=== PATIENT | male | born 1955 | race Caucasian/White ===

== ENCOUNTER 2024-01-18 07:34 | Observation (INO) ==
--- NOTE | 2023-10-20 14:01 | PAT Medication Instructions ---
Medication Instructions Date of Service October 20, 2023 Home Medications No Tears Eye Drop 1 dose OPB UD PRN ud albuterol sulfate 90 mcg/actuation aerosol inhaler 1 inh inhalation QID PRN sob atorvastatin 10 mg tablet (Lipitor) 10 mg PO PM diltiazem HCl 300 mg capsule,24 hr,extended release 300 mg PO QAM empagliflozin 25 mg tablet (Jardiance) 25 mg PO QAM fluticasone 250 mcg-salmeterol 50 mcg/dose blistr powdr for inhalation (Wixela Inhub) 1 inh inhalation QAM ibuprofen 200 mg tablet 200 mg PO Q6H PRN Pain ipratropium 0.5 mg-albuterol 3 mg (2.5 mg base)/3 mL nebulization soln 3 ml inhalation QID PRN meclizine 12.5 mg tablet 12.5 mg PO UD PRN Dizziness nystatin 100,000 unit/gram topical cream 1 applic topical DAILY PRN omeprazole 20 mg tablet,delayed release 20 mg PO QAM Continue as directed No Tears Eye Drop 1 dose OPB UD PRN ud (if needed) ASK your surgeon for instructions ibuprofen 200 mg tablet 200 mg PO Q6H PRN Pain STOP taking 3 days before surgery empagliflozin 25 mg tablet (Jardiance) 25 mg PO QAM STOP taking 24 hours before surgery nystatin 100,000 unit/gram topical cream 1 applic topical DAILY PRN Take morning of surgery With a small sip of water, OTHERWISE NOTHING TO EAT OR DRINK AFTER MIDNIGHT: albuterol sulfate 90 mcg/actuation aerosol inhaler 1 inh inhalation QID PRN sob (use if needed; please bring with you to hospital day of surgery if possible) diltiazem HCl 300 mg capsule,24 hr,extended release 300 mg PO QAM fluticasone 250 mcg-salmeterol 50 mcg/dose blistr powdr for inhalation (Wixela Inhub) 1 inh inhalation QAM ipratropium 0.5 mg-albuterol 3 mg (2.5 mg base)/3 mL nebulization soln 3 ml inhalation QID PRN (if needed) meclizine 12.5 mg tablet 12.5 mg PO UD PRN Dizziness (if needed) omeprazole 20 mg tablet,delayed release 20 mg PO QAM Take evening before surgery albuterol sulfate 90 mcg/actuation aerosol inhaler 1 inh inhalation QID PRN sob (if needed) atorvastatin 10 mg tablet (Lipitor) 10 mg PO PM ipratropium 0.5 mg-albuterol 3 mg (2.5 mg base)/3 mL nebulization soln 3 ml inhalation QID PRN (if needed) meclizine 12.5 mg tablet 12.5 mg PO UD PRN Dizziness (if needed) Other Notes If you have any questions please call us at [phone] or [phone] or [phone] or [phone]
--- NOTE | 2023-12-29 12:23 | Anesthesiology Consultation ---
Date of Service December 29, 2023 Assessment & Plan (1) Encounter for pre-operative examination: Chart Review Chart Review: Acceptable Risk for Surgery and Patient NOT seen in Pre Admission Testing Consults Requested none History Surgery Operation Date: 11/08/23 07:45 Proposed Procedures p L3-L4 Decompression and Fusion with Spinal Cord Monitoring - Larry Bender DO Operation Date: 01/18/24 07:45 Proposed Procedures p L3-L4 Decompression and Fusion with Spinal Cord Monitoring - Larry Bender DO Height/Weight Height: 5 ft 9 in Weight: 114.305 kg Allergies Allergy/AdvReac Type Severity Reaction Status Date / Time Iodinated Contrast Media Allergy Unknown hives Unverified 12/29/23 09:54 latex Allergy Unknown rash Unverified 12/29/23 09:54 chlorhexidine Allergy Rash Verified 12/29/23 09:54 Medications Home Medications Medication Instructions Recorded Confirmed Last Taken No Tears Eye Drop 1 dose OPB UD PRN ud 10/15/23 12/29/23 Unknown albuterol sulfate 90 mcg/actuation 1 inh inhalation QID PRN sob 10/15/23 12/29/23 Unknown aerosol inhaler atorvastatin 10 mg tablet (Lipitor) 10 mg PO PM 10/15/23 12/29/23 Unknown diltiazem HCl 300 mg capsule,24 300 mg PO QAM 10/15/23 12/29/23 Unknown hr,extended release empagliflozin 25 mg tablet 25 mg PO QAM 10/15/23 12/29/23 Unknown (Jardiance) fluticasone 250 mcg-salmeterol 50 1 inh inhalation QAM 10/15/23 12/29/23 Unknown mcg/dose blistr powdr for inhalation (Wixela Inhub) ibuprofen 200 mg tablet 200 mg PO Q6H PRN Pain 10/15/23 12/29/23 Unknown ipratropium 0.5 mg-albuterol 3 mg 3 ml inhalation QID PRN sob 10/15/23 12/29/23 Unknown (2.5 mg base)/3 mL nebulization soln lubiprostone 8 mcg capsule 8 mcg PO HS 10/15/23 12/29/23 Unknown meclizine 12.5 mg tablet 12.5 mg PO UD PRN Dizziness 10/15/23 12/29/23 Unknown nystatin 100,000 unit/gram topical 1 applic topical DAILY PRN ud 10/15/23 12/29/23 Unknown cream omeprazole 20 mg tablet,delayed 20 mg PO QAM 10/15/23 12/29/23 Unknown release linagliptin 5 mg tablet (Tradjenta) 5 mg PO QAM 12/29/23 12/29/23 Unknown Past Medical History Medical History (Updated 12/29/23 @ 12:23 by Yassine Salcido MD) Obesity Encounter for pre-operative examination Chronic cough History of COVID-19 2020 - hospitalized at [facility] "3-4 weeks." reports chronic cough since diagnosis History of colon polyps Osteoarthritis DDD (degenerative disc disease), lumbar IBS (irritable bowel syndrome) DM type 2 (diabetes mellitus, type 2) History of prostate cancer dx'd 2020. Treated surgically. Hearing deficit wears hearing aids HLD (hyperlipidemia) History of paroxysmal supraventricular tachycardia follows with Dr. Rowell Sleep apnea CPAP Asthma uses PRN inh 2xwk on avg COPD (chronic obstructive pulmonary disease) Past Family History Family History Other No family history of adverse response to anesthesia Past Surgical History Surgical History History of rib fracture Rt - pt reports hardware in place History of cataract surgery History of surgery on lower extremity RLE x 13 procedures r/t trauma History of umbilical hernia repair History of right shoulder replacement History of left shoulder replacement History of esophagogastroduodenoscopy (EGD) History of colonoscopy History of prostate surgery History of prostate biopsy History of cardiac catheterization most recent early - no stents. Social History Smoking Status: Former smoker Do You Dip or Chew Tobacco: No Smoking End Date: 2016 Hx Alcohol Use: No Hx Substance Use: No substance use type: does not use Testing Laboratory Results Laboratory Tests 12/23/23 09:22 WBC 6.40 Hgb 14.9 Hct 43.9 Plt Count 166 PT 10.5 INR 1.0 APTT 26 Sodium 137 Potassium 4.1 Chloride 105 Carbon Dioxide 25 BUN 20 Creatinine 0.84 Glucose 186 H Electrocardiogram Date: 12/23/23 DICTATED BY: Julio Ribeiro MD Test Reason : Blood Pressure : / mmHG Vent. Rate : 067 BPM Atrial Rate : 067 BPM P-R Int : 132 ms QRS Dur : 106 ms QT Int : 414 ms P-R-T Axes : 065 -29 009 degrees QTc Int : 437 ms Normal sinus rhythm with sinus arrhythmia Normal ECG No previous ECGs available Confirmed by Julio Ribeiro ([id number]) on 12/25/2023 5:58:05 AM Echocardiogram Date: 10/20/19 EF 55%. LV is normal in size. Impaired relaxation. Mild LVH. LA mildly dilated. Mild AR
[2024-01-18] MEDS: LR 60ML/HR IV SCH (08:43)
[2024-01-18] MEDS: LR 15ML/HR IV SCH (08:43)
[2024-01-18] MEDS: CeleBREX 200 MG CAP PO SCH (08:44)
[2024-01-18] MEDS: ACETAMINOPHEN 500 MG TAB PO SCH (08:44)
[2024-01-18] MEDS: GABAPENTIN 300 MG CAP PO SCH (08:44)
--- NOTE | 2024-01-18 09:12 | History & Physical Bridge Note ---
Date of Service January 18, 2024 History & Physical Bridge Note I have examined the patient, reviewed the History & Physical and in the interval since the performance of the History & Physical I have noted the following changes of clinical significance: no changes noted
--- NOTE | 2024-01-18 09:13 | History & Physical Report ---
Date of Service January 18, 2024 Assessment & Plan (1) Lumbar disc herniation with radiculopathy: Plan: L3-L4 laminectomy possible fusion History of Present Illness Chief Complaint: Back and leg pain Primary Care Provider: Faina Albert DO This is a 69-year-old male who presents with chronic persistent back and leg pain and failing since course of nonoperative care is here for surgical invention. Allergies Allergy/AdvReac Type Severity Reaction Status Date / Time Iodinated Contrast Media Allergy Unknown hives Verified 01/18/24 08:18 latex Allergy Unknown rash Verified 01/18/24 08:18 chlorhexidine Allergy Rash Verified 01/18/24 08:18 Home Medications Medication Instructions Recorded Confirmed Type No Tears Eye Drop 1 dose OPB UD PRN ud 10/15/23 01/18/24 History albuterol sulfate 90 mcg/actuation 1 inh inhalation QID PRN sob 10/15/23 01/18/24 History aerosol inhaler atorvastatin 10 mg tablet (Lipitor) 10 mg PO PM 10/15/23 01/18/24 History diltiazem HCl 300 mg capsule,24 300 mg PO QAM 10/15/23 01/18/24 History hr,extended release empagliflozin 25 mg tablet 25 mg PO QAM 10/15/23 01/18/24 History (Jardiance) fluticasone 250 mcg-salmeterol 50 1 inh inhalation QAM 10/15/23 01/18/24 History mcg/dose blistr powdr for inhalation (Wixela Inhub) ibuprofen 200 mg tablet 200 mg PO Q6H PRN Pain 10/15/23 01/18/24 History ipratropium 0.5 mg-albuterol 3 mg 3 ml inhalation QID PRN sob 10/15/23 01/18/24 History (2.5 mg base)/3 mL nebulization soln lubiprostone 8 mcg capsule 8 mcg PO HS 10/15/23 01/18/24 History meclizine 12.5 mg tablet 12.5 mg PO UD PRN Dizziness 10/15/23 01/18/24 History nystatin 100,000 unit/gram topical 1 applic topical DAILY PRN ud 10/15/23 01/18/24 History cream omeprazole 20 mg tablet,delayed 20 mg PO QAM 03/01/24 06/04/24 History release linagliptin 5 mg tablet (Tradjenta) 5 mg PO QAM 12/29/23 01/18/24 History Past Med/Surg History Problem List (Updated 01/18/24 @ 09:12 by Larry Bender DO) Lumbar disc herniation with radiculopathy Recurrent infective cystitis Balanitis Lower urinary tract symptoms (LUTS) Prostate cancer Medical History (Updated 01/18/24 @ 09:12 by Larry Bender DO) Obesity Encounter for pre-operative examination Chronic cough History of COVID-19 2020 - hospitalized at [facility] x "3-4 weeks." reports chronic cough since diagnosis History of colon polyps Osteoarthritis DDD (degenerative disc disease), lumbar IBS (irritable bowel syndrome) DM type 2 (diabetes mellitus, type 2) History of prostate cancer dx'd 2020. Treated surgically. Hearing deficit wears hearing aids HLD (hyperlipidemia) History of paroxysmal supraventricular tachycardia follows with Dr. Rowell Sleep apnea CPAP Asthma uses PRN inh 2xwk on avg COPD (chronic obstructive pulmonary disease) Surgical History History of rib fracture Rt - pt reports hardware in place History of cataract surgery History of surgery on lower extremity RLE x 13 procedures r/t trauma History of umbilical hernia repair History of right shoulder replacement History of left shoulder replacement History of esophagogastroduodenoscopy (EGD) History of colonoscopy History of prostate surgery History of prostate biopsy History of cardiac catheterization most recent early - no stents. Family History Other No family history of adverse response to anesthesia Social History Smoking Status: Former smoker Smoking End Date: 2016; Second Hand Exposure: No; Do You Dip or Chew Tobacco: No; Tobacco Cessation Education Requested by Patient: No Hx Alcohol Use: No Hx Substance Use: No Preferred Language: Faroese Communication Ability: Effective Strategic Partnership Specialist Required: No Beliefs That Will Affect Care: None Current Living Situation: Alone Feels Safe at Home: Yes Safety Concerns: Feels Safe At This Time Assistive Devices: CPAP, Glasses, Hearing Aid - Bilateral and Nebulizer Physical Exam Physical Exam: Patient is alert and oriented heart regular in rhythm Lungs clear Results & Data Results & Data Vital Signs (Past 12 Hours) Vital Signs Temp Resp O2 Del Method 01/18/24 08:26 36.8 C 20 Room Air
[2024-01-18] MEDS ORDERED: MIDAZOLAM HCL 1 MG/ML 2ML VIAL ONE (09:39)
[2024-01-18] MEDS ORDERED: ROCURONIUM BROMIDE 10 MG/ML 5 ML VIAL IV ONE ×4 (09:39→10:50)
[2024-01-18] MEDS ORDERED: LIDOCAINE 2% 2 ML VIAL/AMP(20MG/ML) INFIL ONE (09:39)
[2024-01-18] MEDS ORDERED: fentaNYL citrate PF 100 MCG/2 ML VIAL ONE (09:39)
[2024-01-18] MEDS ORDERED: PROPOFOL IV EMULSION 10 MG/ML 20 ML VIAL IV ONE (09:39)
[2024-01-18] MEDS: ceFAZolin 2000MG 2,000 MG/15 ML SYR IV SCH ×2 (10:05→17:24)
[2024-01-18] MEDS ORDERED: KETAMINE HCL 10MG/ML SYR ONE (10:42)
[2024-01-18] MEDS ORDERED: SUGAMMADEX SODIUM 200 MG/2 ML VIAL IV ONE (10:50)
[2024-01-18] MEDS: ceFAZolin 330 MG/ML 1 GM VIAL ONE (11:02)
[2024-01-18] MEDS: BUPIVACAINE/EPINEPHRINE 0.25% 1:200,000 30 ML VIAL ONE (11:02)
[2024-01-18] MEDS: FLOSEAL HEMOSTATIC MATRIX 10ML TOP ONE (11:31)
--- NOTE | 2024-01-18 11:36 | Operative Report ---
Post Operative Report Pre & Post Diagnosis Operation Date: 01/18/24 09:35 Pre-Op Diagnosis: #1 lumbar spinal stenosis with neurogenic claudication #2 lumbar disc herniation with radiculopathy #3 obesity Post-Op Diagnosis: Same I identified the patient and participated in the time-out.: Yes Procedure Operation Date: 01/18/24 09:35 Actual Procedures #1 lumbar decompression with bilateral medial facetectomies and foraminotomies L3-L4. #2 posterior spinal fusion L3-L4. #3 placement of posterior instrumentation L3-L4 per #4 interbody fusion L3-L4. #5 placement of Spira 15 x 26 mm at L3-L4. #6 placement locally harvested morselized autograft and posterior gutters. #7 placement infuse collagen sponge combined with Koros bone graft in the posterior gutters and Morpheus bone graft interbody space. Surgeon Larry Bender, DO Pediatric Physical Therapist Lucero Cintron Estimated Blood Loss 450 Findings See Below The patient is 5 foot 9 weighing over 114 kg with a BMI in excess of 37. The patient's body habitus created significant technical difficulty with positioning exposure and the procedure itself and at least 50% increased operative time. Specimens None Indications This is a 69-year-old male who presents above-mentioned diagnosis after failing since course of nonoperative care is here for surgical invention. Description of Procedure Patient was met with identified informed consent obtained. Patient was then taken to the operative suite underwent ablation placed in a prone position on the Kt table top of the [place] frame. All bony promises well-padded eyes inspected to ensure no external precipice spinal. This point lumbar spine was prepped and draped in normal sterile fashion. Sharp dissection with the assistance of Bovie cautery was then formed down to and exposing the lamina interlaminar space at L3-L4. A midline decompression was then performed including bilateral medial facetectomies. Then performed foraminotomies of the left to excise the foraminal stenosis and disc herniation. The discrimination extended throughout the foramen to the extraforaminal region. I did end up compromising the facet in order to adequately decompress this region. Subsequently created iatrogenic instability. In light of the patient's body habitus and obesity I therefore move forward with a fusion at this level to adequately stabilize him and prevent further neural compression. Dissection was carried out to the transverse processes at L3-L4 bilaterally. Pedicle screws then placed at L3-L4 bilaterally with assistance of fluoroscopy process evette placed. By way of transforaminal approach on the left a complete discectomy of L3-L4 was performed endplates guided to subcortical bleeding bone and a 15 x 26 mm spiral cage filled with Morpheus bone graft apposition. The rods then compressed locked in final position bilaterally. The transverse processes of L3-L4 burred to subcortical bleeding bone. Infuse collagen sponge, with Koros and local autograft placed in the posterior gutters. 15 round YAJAIRA drain inserted. The incision was then closed with 1 Vicryl in the fascia 2-0 Vicryl subcutaneously and 4 Monocryl for final closure. Steri-Strips sterile dressings placed. Patient waken taken to PACU stable condition. Please note Lucero Cintron was present at the entire procedure and all the patient positioning complex portions of the surgery and final skin closure. Spinal cord monitoring was utilized and no changes were noted throughout the procedure. I attest to the content of the Intraoperative Record and any orders documented therein. Any exceptions are noted below.
--- NOTE | 2024-01-18 11:58 | Fluoroscopy Report ---
FL lumbar spine 2-3V CLINICAL HISTORY: L3-L4 LAMI COMPARISON STUDY: None. FLUOROSCOPY TIME: 16 seconds FLUOROSCOPY IMAGES: Ka,r: 16.3 mGy FINDINGS: Posterior decompression and fusion at L3-L4 with pedicle screws and rods. The hardware appe ars intact. A disc spacer is in place. IMPRESSION: Fluoroscopic assistance as above. ACT 112: Negative or not required by law. Electronically signed by: Bryant Chau M.D. 01/18/2024 11:57 AM
[2024-01-18] MEDS ORDERED: ATROPINE SULFATE 0.1 MG/ML 10ML SYR IV PRN (12:08)
[2024-01-18] MEDS ORDERED: DROPERIDOL 5 MG/2 ML VIAL IV PRN (12:08)
[2024-01-18] MEDS ORDERED: ePHEDrine sulfate 50 MG/ML AMP IV PRN (12:08)
[2024-01-18] MEDS: HYDROmorphone INJ 1 MG/ML SYRINGE IV PRN (12:10)
[2024-01-18] MEDS: HYDROmorphone INJ 1 MG/ML SYRINGE ONE (12:31)
[2024-01-18] MEDS ORDERED: DO NOT ADMINISTER FLU VACCINE PRN (13:19)
[2024-01-18] MEDS ORDERED: ALBUTEROL HFA 8 GM INHALER INH PRN (13:19)
[2024-01-18] MEDS ORDERED: PROMETHAZINE HCL 12.5 MG in SODIUM CHLORIDE 0.9% 50 ML IV PRN (13:19)
[2024-01-18] MEDS ORDERED: PHARMACY GLYCEMIC MGMT CONSULT PRN (13:19)
[2024-01-18] MEDS ORDERED: NALOXONE HCL 0.4 MG/1 ML VIAL/CARP IV PRN (13:19)
[2024-01-18] MEDS ORDERED: ACETAMINOPHEN 1,000 MG/100 ML VIAL IV PRN (13:19)
[2024-01-18] MEDS ORDERED: ALBUT/IPRATROP 3MG/0.5MG NEB 3 ML VIAL INH PRN (13:19)
[2024-01-18] MEDS ORDERED: FAMOTIDINE 20 MG TAB PO PRN (13:19)
[2024-01-18] MEDS ORDERED: ALUMINUM/MAGNESIUM SUSP 30 ML UDC PO PRN (13:19)
[2024-01-18] MEDS ORDERED: DO NOT ADMINISTER PNEUMOCOCCAL VACCINE PRN (13:19)
[2024-01-18] MEDS ORDERED: SOD PHOSPHATE/SOD BIPHOSPHATE ENEMA 132 ML BTL PR PRN (13:19)
[2024-01-18] MEDS ORDERED: diphenhydrAMINE Capsule 25 MG CAP PO PRN (13:19)
[2024-01-18] MEDS ORDERED: hydrOXYzine HCl 25 MG TAB PO PRN (13:19)
[2024-01-18] MEDS ORDERED: METOCLOPRAMIDE HCL INJ 5 MG/ML 2 ML VIAL IV PRN (13:19)
[2024-01-18] MEDS ORDERED: HYDROmorphone INJ 0.5 MG/0.5 ML SYR IV PRN (13:19)
[2024-01-18] MEDS ORDERED: bisacodyL 10 MG SUPP PR PRN (13:19)
[2024-01-18] MEDS ORDERED: ONDANSETRON 4 MG OD TAB PO PRN (13:19)
[2024-01-18] MEDS ORDERED: HYDROmorphone INJ 1 MG/ML SYRINGE IV PRN (13:19)
[2024-01-18] MEDS ORDERED: LORazepam 0.5 MG in SYRINGE 0.25 ML IV PRN (13:19)
[2024-01-18] MEDS ORDERED: LORazepam 0.5 MG TAB PO PRN (13:19)
[2024-01-18] MEDS ORDERED: ONDANSETRON INJ 2 MG/ML 2 ML VIAL IV PRN (13:19)
[2024-01-18] MEDS ORDERED: ACETAMINOPHEN 500 MG TAB PO PRN (13:19)
--- NOTE | 2024-01-18 13:20 | Anesthesiology Progress Note ---
Date of Service January 18, 2024 Anesthesia Post Procedure Vital Signs Vital Signs: Temp Pulse Resp BP Pulse Ox O2 Del Method O2 Flow Rate 01/18/24 13:05 37.0 C 68 14 109/60 96 Nasal Cannula 2 01/18/24 12:55 71 14 112/57 L 94 Nasal Cannula 2 01/18/24 12:45 74 16 123/79 93 Nasal Cannula 3 01/18/24 12:35 71 16 126/60 93 Oxymask 7 01/18/24 12:25 77 12 137/81 90 Oxymask 13 01/18/24 12:15 78 13 134/78 91 Oxymask 13 01/18/24 12:05 81 12 163/90 H 91 Oxymask 13 01/18/24 11:55 78 12 162/84 H 90 Oxymask 13 01/18/24 11:49 36.6 C 82 19 177/86 H 91 Oxymask 13 01/18/24 08:26 36.8 C 20 Room Air Pain Intensity Back: Pain Intensity: 7 Transfer of Care Handoff Completed per policy Notes Mental Status: alert / awake / arousable Patient Amnestic to Procedure: Yes Nausea / Vomiting: adequately controlled Pain: adequately controlled Airway Patency, RR, SpO2: stable & adequate BP & HR: stable & adequate Hydration State: stable & adequate Anesthetic Complications: no major complications apparent
[2024-01-18] MEDS ORDERED: ARTIFICIAL TEARS OPB PRN (13:27)
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
[2024-01-18] MEDS: LACTATED RINGER'S 1,000 ML IV SCH (14:21)
--- NOTE | 2024-01-18 14:34 | Pharmacy Report ---
Pharmacy Glycemic Short Note 2 - Date of Service January 18, 2024 - Glycemic Short BSG Results (Last 24 hours): 01/18/24 01/18/24 08:18 11:53 POC Glucose 140 H 125 H OUTPATIENT ANTIDIABETIC REGIMEN: * Empagliflozin 25 mg, Jardiance 5 mg PO qAM * A1c pending with Am labs ASSESSMENT: * Patient admitted POD #0, dex 6 mg IV scheduled to start tomorrow * BSGs 140-125 mg/dL * Will begin between weight based stress of 1 and 2 basal/bolus * Monitor for need to tighten with start of steroids PLAN FOR INPATIENT GLYCEMIC CONTROL: * Hold outpatient oral diabetes medications * Basal insulin * Lantus 15 units x1 * Bolus insulin * NovoLog per scale ACHS or Q6hrs while NPO * Goal Range: Low 110 mg/dL - High 140 mg/dL * Correction Factor: 30 mg/dL/unit * Nutritional / Prandial insulin per carb ratio of 1 unit per 10 grams CHO consumed
[2024-01-18] MEDS: INSULIN ASPART PER UNIT CHARGE SC SCH (14:49)
[2024-01-18] MEDS: LANTUS PER UNIT CHARGE SC ONE (14:49)
[2024-01-18] MEDS: traMADol HCL 50 MG TABLET PO PRN (16:49)
[2024-01-18] MEDS ORDERED: LEVALBUTEROL 1.25 MG/3 ML NEB NEB SCH (20:45)
[2024-01-18] MEDS: SODIUM CHLOR 7% 4 ML NEB NEB SCH (21:06)
[2024-01-18] MEDS: IPRATROPIUM BROMIDE NEB SOLN 0.02% 0.5MG/2.5ML VIAL NEB ONE (21:06)
[2024-01-18] MEDS: LEVALBUTEROL 1.25 MG/3 ML NEB NEB ONE (21:06)
[2024-01-18] MEDS: DOXYCYCLINE HYCLATE 100 MG CAP PO SCH (22:16)
[2024-01-18] MEDS: ATORVASTATIN 10 MG TAB PO SCH (22:16)
[2024-01-18] MEDS: guaiFENesin 600 MG TABCR PO SCH (22:16)
[2024-01-18] MEDS: oxyCODONE HCL IR 5 MG TAB (IMMEDIATE RELEASE) PO PRN (22:17)
[2024-01-18 23:55] LABS: Adenovirus PCR Not Detected (NotDetected); Bordetella parapertussis PCR Not Detected (NotDetected); Bordetella pertussis PCR Not Detected (NotDetected); Chlamydia pneumoniae PCR Not Detected (NotDetected); Coronavirus 229E PCR Not Detected (NotDetected); Coronavirus CoV-2 (COVID19)PCR Not Detected (NotDetected); Coronavirus HKU1 PCR Not Detected (NotDetected); Coronavirus NL63 PCR Not Detected (NotDetected); Coronavirus OC43PCR Not Detected (NotDetected); Human Metapneumovirus PCR Not Detected (NotDetected); Influenza A PCR Not Detected (NotDetected); Influenza B PCR Not Detected (NotDetected); Mycoplasma pneumoniae PCR Not Detected (NotDetected); Parainfluenza Virus 1 PCR Not Detected (NotDetected); Parainfluenza Virus 2 PCR Not Detected (NotDetected); Parainfluenza Virus 3 PCR Not Detected (NotDetected); Parainfluenza Virus 4 PCR Not Detected (NotDetected); Respiratory Syncytial VirusPCR Not Detected (NotDetected); Rhinovirus/Enterovirus PCR Not Detected (NotDetected)
[2024-01-19] MEDS: NYSTATIN OINT 15 GM TUBE EXT SCH (00:10)
[2024-01-19] MEDS: LUBIPROSTONE 8 MCG CAP PO SCH (00:10)
[2024-01-19] MEDS: DOCUSATE SODIUM/SENNA 50/8.6MG TAB PO SCH (00:10)
[2024-01-19] MEDS: LEVALBUTEROL 1.25 MG/3 ML NEB NEB SCH (01:00)
[2024-01-19] MEDS: IPRATROPIUM BROMIDE NEB SOLN 0.02% 0.5MG/2.5ML VIAL NEB SCH (01:00)
[2024-01-19] MEDS: POLYETHYLENE (MIRALAX) 17 GM PACK PO SCH (05:57)
[2024-01-19 07:08] LABS: Basophils # (auto) 0.04 K/uL (0.00-0.20); Basophils % (auto) 0.4 %; Hematocrit (blood only) 44.7 % (42.0-52.0); Hemoglobin 14.6 g/dl (14.0-18.0); Immature Granulocytes # (auto) 0.12 K/uL (0.01-0.20); Immature Granulocytes % (auto) 1.2 %; Lymphocytes # (auto) 1.03 K/uL (1.20-3.40); Lymphocytes % (auto) 10.6 %; Mean Corpuscular Hgb Conc 32.7 g/dL (32.0-36.0); Mean Corpuscular Volume 85.6 fL (80.0-100.0); Mean Platelet Volume 11.3 fL (9.4-12.4); Monocytes # (auto) 0.67 K/uL (0.11-0.59); Monocytes % (auto) 6.9 %; Neutrophils # (auto) 7.85 K/uL (1.40-6.50); Neutrophils % (auto) 80.9 %; Platelet Count 195 K/uL (130-400); RDW Coefficient of Variation 14.8 % (11.5-14.5); RDW Standard Deviation 46.4 fL (36.4-46.3); Red Blood Count 5.22 M/uL (4.70-6.10); White Blood Count 9.71 K/ul (4.8-10.8)
[2024-01-19 07:29] LABS: BUN Creatinine Ratio 18.9 (10-20); Calcium 9.3 mg/dl (8.6-10.3); Creatinine Clr Calc Pharmacy 99.4 ml/min; Est GFR (African American) 102.1 ml/min; Est GFR (Non-African American) 88.1 ml/min; Potassium 4.4 mmol/L (3.5-5.1)
--- NOTE | 2024-01-19 07:47 | XRay Report ---
XR chest 1V portable HISTORY: cough, COPD,r/o pneumonia COMPARISON: Chest 12/23/2023. FINDINGS: No pneumothorax. There are trace bilateral pleural effusions. The heart remains mildly enla rged. There is mild central pulmonary vascular congestion without overt edema. A few bibasilar linear densities favor subsegmental atelectasis. Otherwise, no focal lung consolidations to suggest a pneum onia. Postoperative changes within the right ribs again noted. There are bilateral total shoulder art hroplasties. IMPRESSION: Cardiomegaly with mild congestive change and trace bilateral pleural effusions. ACT 112: Negative or not required by law. Electronically signed by: Bryant Chau M.D. 01/19/2024 7:46 AM
[2024-01-19] MEDS: dexAMETHasone 6 MG in SYRINGE 0 ML IV SCH (08:11)
[2024-01-19] MEDS: ADVANCED PROBIOTIC 625 MG CAPSULE PO SCH (08:11)
[2024-01-19] MEDS: PANTOprazole 40 MG TAB PO SCH (08:12)
[2024-01-19] MEDS: FLUTICASONE/VILANTEROL 200/25MCG 14 PUFFS/INHALER INH SCH (08:13)
[2024-01-19] MEDS: LANTUS PER UNIT CHARGE SC SCH ×2 (08:23→21:24)
[2024-01-19] MEDS: cefTRIAXone SODIUM 2,000 MG/50 ML BAG IV SCH (08:30)
[2024-01-19 08:44] LABS: Estimated Average Glucose 154 mg/dl
[2024-01-19] MEDS ORDERED: EMPAGLIFLOZIN 25 MG TAB PO SCH (09:00)
--- NOTE | 2024-01-19 09:20 | Orthopedic Progress Note ---
Date of Service January 19, 2024 Assessment & Plan (1) Lumbar disc herniation with radiculopathy: Plan: This time continue physical therapy monitor his YAJAIRA operatively discharged home the next few days. Admission and Anticipated Discharge Date Admission Date: January 18, 2024 Subjective Back pain controlled leg pain improved Physical Exam Physical Exam: Patient is sitting up at the bedside. Is good strength testing. Appears comfortable. Results & Data Vital Signs (Past 12 Hours) Vital Signs Temp Pulse Pulse Resp BP Pulse Ox O2 Del Method 01/19/24 08:15 36.5 C 70 18 126/64 95 Room Air 01/19/24 07:54 36.5 C 80 18 112/68 97 Room Air 01/19/24 07:38 Nasal Cannula 01/19/24 07:31 98 H 18 88 L Room Air 01/19/24 03:34 36.5 C 71 17 125/63 94 CPAP 01/19/24 01:00 78 18 93 CPAP 01/18/24 22:53 36.7 C 79 17 128/67 92 Nasal Cannula, CPAP 01/18/24 22:10 Nasal Cannula O2 Flow Rate 01/19/24 08:15 01/19/24 07:54 01/19/24 07:38 2 01/19/24 07:31 01/19/24 03:34 2 01/19/24 01:00 2 01/18/24 22:53 2 01/18/24 22:10 2 Queries Orthopedic Spine Obesity: Yes
[2024-01-19] MEDS: dilTIAZem HCL 300 MG CAPCR PO SCH (09:25)
[2024-01-19 10:16] LABS: Appearance Urine Clear (Clear); Bilirubin Urine Negative (Negative); Blood Urine Negative (Negative); Color Urine Yellow; Glucose Urine UA 2+ (Negative); Ketones Urine Negative (Negative); Leukocyte Esterase Urine Negative (Negative); Nitrite Urine Negative (Negative); Protein Urine Negative (Negative); Specific Gravity Urine 1.018 (1.000-1.030); Urobilinogen Urine Negative (Negative); pH Urine 5.5 (4.5-7.5)
--- NOTE | 2024-01-19 14:22 | Hospitalist Progress Note ---
Date of Service January 19, 2024 Assessment & Plan (1) Lumbar disc herniation with radiculopathy: Plan: - POD # 1 Lumbar decompression fusion of L2-L3 by Dr. Bender - Pain management, bowel regimen and DVT ppx per the primary team - PT/OT consults, pt is planning on outpatient therapy, lives at home with son as neighbor - Follow am CBC to monitor for acute blood loss, last hgb 14.9 on 12/23/23 - Hgb post op day 1 is normal (2) History of prostate cancer: Plan: currently surveillance, PSA elevated to 9.3 follows [facility], Dr. Kinney for medical oncology will need to f/u with urology as outpt (3) DM type 2 (diabetes mellitus, type 2): Plan: -Accu-Cheks ACHS -Jardiance and linagliptin scheduled with a.m. meds per primary team -Glycemic pharmacy has been consulted -a1c 7.0 appreciate glycemic recs (4) HLD (hyperlipidemia): Plan: -Continue statin therapy, chronic, stable (5) Sleep apnea: Plan: -Continue CPAP at bedtime (6) HTN (hypertension): Plan: -BP stable, continue diltiazem (7) COPD (chronic obstructive pulmonary disease): (8) COPD exacerbation: (9) Asthma: Plan: - Nebs, wixela -starting on IV rocephin and doxy POD # 0 due to concern for COPD exac --Procal is negative, also afebrile, no leukocytosis, no evidence of PNA, WILL Discontinue IV Rocephin; continue oral doxy due to copd exac concern - hypertonic saline - continue cpap, he has been weaned off oxygen, lungs clear today -CXR with congestive change, no consolidation -obtain bmp, cbc and BNP in a.m -he is not overtly overloaded on exam so will hold on diuresis at this time -pt with multiple cups of liquid at bedside if hypoxia returns would repeat CXR and pt likely to benefit from small dose IV lasix (10) Obesity: Plan: -BMI 37.3, encouraged weight loss and diet status post surgical procedure DVT ppx: teds, scds Lines: PIV x 1, YAJAIRA drain FEN/GI: Allow diabetic/heart healthy diet CODE: Full code Dispo: From home, likely to remain in the hospital x 1-2 days Thank you for involving us in the care of Mr. Boss. If you have any questions or concerns please do not hesitate to call. At this time medicine will follow along. A total of 42 minutes were spent with greater than 50% of that time face to face with the patient, personally reviewing all current laboratories, imaging studies, past medication reconciliation, outpatient chart review, and discussion with specialists to collaborate care for the patient with attending. Please see attending documentation for corrections and/or additions. Admission and Anticipated Discharge Date Admission Date: January 18, 2024 Supervising Physician Co-Signing Physician Notes Patient not seen by me Discussed with Advanced Practitioner Subjective Patient was seen and examined in 301. Follow up lumbar surgery. He was ambulating the halls before my visit. He denies f/c/s, chest pain, sob, n/v/d, abd pain. He feels his urine smells like, "sewage." Review of Systems Review of Systems: All systems reviewed & are unremarkable except as noted in HPI & below Physical Exam Physical Exam: Gen: WD/WN, tall, M, NAD, A&O x3 HEENT: Normocephalic, atraumatic, conjunctivae moist, sclerae anicteric, mucous membranes moist. Lung: Clear to Auscultation bilaterally, no wheezes/rales/rhonchi Heart: Regular rate, regular rhythm, no murmurs, rubs, or gallops Abdomen: Soft, NT, ND +BS x 4 Extremities: No edema, teds in place, lumbar dressing CDI with serosang dressing Skin: Warm, no rash, negative turgor. Results & Data Results & Data Vital Signs (Past 12 Hours) Vital Signs Temp Pulse Pulse Resp BP Pulse Ox O2 Del Method 01/19/24 13:13 97 H 18 90 Room Air 01/19/24 13:09 36.6 C 76 18 126/84 95 Room Air 01/19/24 08:15 36.5 C 70 18 126/64 95 Room Air 01/19/24 07:54 36.5 C 80 18 112/68 97 Room Air 01/19/24 07:38 Nasal Cannula 01/19/24 07:31 98 H 18 88 L Room Air 01/19/24 03:34 36.5 C 71 17 125/63 94 CPAP O2 Flow Rate 01/19/24 13:13 06/05/24 13:09 01/19/24 08:15 01/19/24 07:54 01/19/24 07:38 2 01/19/24 07:31 01/19/24 03:34 2 Diagnostic Findings urinalysis viewed and interpreted by myself and negative for infection. Medications Administered Current Inpatient Medications Acetaminophen (Acetaminophen 500 Mg Tab) 1,000 mg PO Q8H PRN PRN Reason: MILD Pain Scale 1,2,3 & Pre PT Stop: 02/17/24 13:18 Al Hydrox/Mg Hydrox/Simethicone (Aluminum/Magnesium Susp 30 Ml Udc) 30 ml PO Q6H PRN PRN Reason: Dyspepsia Stop: 02/17/24 13:18 Albuterol (Albuterol Hfa 8 Gm Inhaler) 1 puffs INH QID PRN PRN Reason: sob Stop: 02/17/24 13:18 Albuterol (Albut/Ipratrop 3mg/0.5mg Neb 3 Ml Vial) 3 ml INH QID PRN; Protocol PRN Reason: sob Stop: 02/17/24 13:18 Artificial Tears (Artificial Tears) 1 drops OPB QID PRN PRN Reason: DRYNESS Stop: 02/17/24 13:26 Atorvastatin Calcium (Atorvastatin 10 Mg Tab) 10 mg PO PM CHELSEY Stop: 02/17/24 20:59 Last Admin: 01/18/24 22:16 Dose: 10 mg Bisacodyl (Bisacodyl 10 Mg Supp) 10 mg [place] DAILY PRN PRN Reason: Constipation Stop: 02/17/24 13:18 Diltiazem HCl (Diltiazem Hcl 300 Mg Capcr) 300 mg PO QAM CHELSEY Stop: 02/18/24 08:59 Last Admin: 01/19/24 09:25 Dose: 300 mg Diphenhydramine HCl (Diphenhydramine Capsule 25 Mg Cap) 25 mg PO Q6H PRN PRN Reason: Allergic Rhinitis/Insomnia Stop: 02/17/24 13:18 Doxycycline Hyclate (Doxycycline Hyclate 100 Mg Cap) 100 mg PO BID CHELSEY Stop: 01/25/24 20:59 Last Admin: 01/19/24 08:12 Dose: 100 mg Famotidine (Famotidine 20 Mg Tab) 20 mg PO Q12H PRN PRN Reason: Dyspepsia Stop: 02/17/24 13:18 Fluticasone/Vilanterol (Fluticasone/Vilanterol 200/25mcg 14 Puffs/Inhaler) 1 puffs INH QAM [facility] Stop: 02/18/24 08:59 Last Admin: 01/19/24 08:13 Dose: 1 puffs Guaifenesin (Guaifenesin 600 Mg Tabcr) 1,200 mg PO Q12 CHELSEY Stop: 02/17/24 20:59 Last Admin: 01/19/24 08:12 Dose: 1,200 mg Hydromorphone HCl (Hydromorphone Inj 0.5 Mg/0.5 Ml Syr) 0.5 mg IV Q3H PRN PRN Reason: MODERATE Pain (Scale 4,5,6) & Pre PT Stop: 02/01/24 13:18 Hydromorphone HCl (Hydromorphone Inj 1 Mg/Ml Syringe) 1 mg IV Q3H PRN PRN Reason: SEVERE Pain (Scale 7,8,9,10) Stop: 02/01/24 13:18 Hydroxyzine HCl (Hydroxyzine Hcl 25 Mg Tab) 25 mg PO Q8H PRN PRN Reason: Anxiety Stop: 02/17/24 13:18 Promethazine HCl 12.5 mg/ (Sodium Chloride) 50.5 mls @ 202 mls/hr IV Q6H PRN PRN Reason: Nausea &/or Vomiting Stop: 02/17/24 13:18 Lorazepam 0.5 mg/ Syringe 0.5 mls @ 2 mls/min IV Q8H PRN; Protocol PRN Reason: Sedation/Anxiety Stop: 02/17/24 13:18 Dexamethasone 6 mg/ Syringe 1.5 mls @ 1 mls/min IV DAILY CHELSEY Stop: 01/21/24 09:02 Last Admin: 01/19/24 08:11 Dose: 1 mls/min Ceftriaxone Sodium (Rocephin) 2,000 mg in 50 mls @ 100 mls/hr IV Q24H [facility] Stop: 01/26/24 08:59 Last Infusion: 01/19/24 09:02 Dose: Infused Influenza Virus Vaccine Quadrival (Do Not Administer Flu Vaccine) 1 each N/A PRN PRN PRN Reason: Notification Stop: 02/17/24 13:18 Insulin Aspart (Insulin Aspart Per Unit Charge) 0 units SC ACHS [facility] Stop: 02/17/24 14:29 Last Admin: 01/19/24 12:14 Dose: 9 units Insulin Glargine (Lantus Per Unit Charge) 0 units SC HS [facility]; Protocol Stop: 02/18/24 20:59 Insulin Glargine (Lantus Per Unit Charge) 20 units SC QAM [facility]; Protocol Stop: 02/19/24 08:59 Ipratropium [place] (Ipratropium [place] Neb Soln 0.02% 0.5mg/2.5ml Vial) 0.5 mg NEB Q6R [facility] Stop: 02/18/24 00:59 Last Admin: 01/19/24 13:12 Dose: 0.5 mg Lactobacillus Acidophilus (Advanced Probiotic 625 Mg Capsule) 1,250 mg PO DAILY [facility] Stop: 02/18/24 08:59 Last Admin: 01/19/24 08:11 Dose: 1,250 mg Levalbuterol HCl (Levalbuterol 1.25 Mg/3 Ml Neb) 1.25 mg NEB Q6R [facility] Stop: 02/18/24 00:59 Last Admin: 01/19/24 13:13 Dose: 1.25 mg Lorazepam (Lorazepam 0.5 Mg Tab) 0.5 mg PO Q8H PRN PRN Reason: Sedation/Anxiety Stop: 02/17/24 13:18 Lubiprostone (Lubiprostone 8 Mcg Cap) 8 mcg PO [facility] Stop: 02/17/24 20:59 Last Admin: 01/19/24 00:10 Dose: 8 mcg Magnesium Hydroxide (Magnesium Hydroxide Susp 30 Ml Udc) 30 ml PO Q24H PRN PRN Reason: Constipation Stop: 02/17/24 13:18 Meclizine HCl (Meclizine 12.5 Mg Tab) 12.5 mg PO UD PRN PRN Reason: Dizziness Stop: 02/17/24 13:18 Metoclopramide HCl (Metoclopramide Hcl Inj 5 Mg/Ml 2 Ml Vial) 10 mg IV Q6H PRN PRN Reason: Nausea &/or Vomiting Stop: 02/17/24 13:18 Miscellaneous Information (Pharmacy Glycemic Mgmt Consult) 1 each N/A UD PRN PRN Reason: Consult Stop: 02/17/24 13:18 Naloxone HCl (Naloxone Hcl 0.4 Mg/1 Ml Vial/Carp) 0.1 mg IV Q5M PRN PRN Reason: Oversedation/Resp depression Stop: 02/17/24 13:18 Nystatin (Nystatin Oint 15 Gm Tube) 1 appln EXT BID CHELSEY Stop: 02/17/24 20:59 Last Admin: 01/19/24 08:12 Dose: 1 appln Ondansetron HCl (Ondansetron Inj 2 Mg/Ml 2 Ml Vial) 4 mg IV Q6H PRN PRN Reason: Nausea &/or Vomiting Stop: 02/17/24 13:18 Ondansetron HCl (Ondansetron 4 Mg Od Tab) 4 mg PO Q6H PRN PRN Reason: Nausea Stop: 02/17/24 13:18 Oxycodone HCl (Oxycodone Hcl Ir 5 Mg Tab (Immediate Release)) 5 - 10 mg PO Q4H PRN PRN Reason: Pain & Pre PT Stop: 02/01/24 13:18 Last Admin: 01/19/24 06:00 Dose: 10 mg Pantoprazole Sodium (Pantoprazole 40 Mg Tab) 40 mg PO QAM [facility] Stop: 02/18/24 08:59 Last Admin: 01/19/24 08:12 Dose: 40 mg Pneumococcal Polyvalent Vaccine (Do Not Administer Pneumococcal Vaccine) 1 each N/A PRN PRN PRN Reason: Notification Stop: 02/17/24 13:18 Polyethylene Glycol (Polyethylene (Miralax) 17 Gm Pack) 17 gm PO Q6 [facility] Stop: 02/18/24 05:59 Last Admin: 01/19/24 12:14 Dose: 17 gm Senna/Docusate Sodium (Docusate Sodium/Senna 50/8.6mg Tab) 2 tab PO HS [facility] Stop: 02/17/24 20:59 Last Admin: 01/19/24 00:10 Dose: 2 tab Sodium Biphosphate/Sodium Phosphate (Sod Phosphate/Sod Biphosphate Enema 132 Ml Btl) 132 ml [place] ONE PRN PRN Reason: Constipation Stop: 02/17/24 13:18 Sodium Chloride (Sodium Chlor 7% 4 Ml Neb) 4 ml NEB BIDR CHEL[facility] Stop: 02/17/24 20:34 Last Admin: 01/19/24 07:31 Dose: 4 ml Tramadol HCl (Tramadol Hcl 50 Mg Tablet) 50 - 100 mg PO Q4H PRN PRN Reason: Moderate-Severe pain & Pre PT Stop: 02/17/24 13:18 Last Admin: 01/19/24 12:21 Dose: 100 mg
--- NOTE | 2024-01-19 14:31 | Pharmacy Report ---
Pharmacy Glycemic Short Note 2 - Date of Service January 19, 2024 - Glycemic Short BSG Results (Last 24 hours): 01/18/24 01/18/24 01/18/24 14:33 16:49 20:36 Glucose POC Glucose 165 H 169 H 211 H 01/19/24 01/19/24 01/19/24 06:49 07:44 11:34 Glucose 242 H POC Glucose 205 H 181 H OUTPATIENT ANTIDIABETIC REGIMEN: * Empagliflozin 25 mg, Jardiance 5 mg PO qAM * A1c pending with Am labs ASSESSMENT: 01/18 * BSGs [phone] mg/dL yesterday * Fasting this morning 205 mg/dL- will increase lantus dose today * Tightened novolog parameters as patient started 6 mg IV dexamethasone daily 01/17 * Patient admitted POD #0, dex 6 mg IV scheduled to start tomorrow * BSGs 140-125 mg/dL * Will begin between weight based stress of 1 and 2 basal/bolus * Monitor for need to tighten with start of steroids PLAN FOR INPATIENT GLYCEMIC CONTROL: * Hold outpatient oral diabetes medications * Basal insulin * Lantus 20 units xqAM, scale for PM 0-15 units * Bolus insulin * NovoLog per scale ACHS or Q6hrs while NPO * Goal Range: Low 110 mg/dL - High 140 mg/dL * Correction Factor: 20 mg/dL/unit * Nutritional / Prandial insulin per carb ratio of 1 unit per 6 grams CHO consumed
[2024-01-19] MEDS: MAGNESIUM HYDROXIDE SUSP 30 ML UDC PO PRN (15:59)
[2024-01-19] MEDS ORDERED: LANTUS PER UNIT CHARGE SC SCH (21:00)
[2024-01-20 06:15] LABS: Hematocrit (blood only) 42.7 % (42.0-52.0); Mean Corpuscular Hemoglobin 28.2 pg (25.0-34.0); Mean Corpuscular Hgb Conc 32.8 g/dL (32.0-36.0); Mean Corpuscular Volume 85.9 fL (80.0-100.0); Mean Platelet Volume 11.9 fL (9.4-12.4); Platelet Count 182 K/uL (130-400); RDW Standard Deviation 46.8 fL (36.4-46.3); Red Blood Count 4.97 M/uL (4.70-6.10); White Blood Count 9.29 K/ul (4.8-10.8)
[2024-01-20 06:23] LABS: BUN Creatinine Ratio 21.6 (10-20); Calcium 9.3 mg/dl (8.6-10.3); Creatinine Clr Calc Pharmacy 120.9 ml/min; Est GFR (African American) 110.6 ml/min; Est GFR (Non-African American) 95.4 ml/min; Potassium 4.7 mmol/L (3.5-5.1)
--- NOTE | 2024-01-20 08:18 | Discharge Summary ---
Date of Service January 20, 2024 Admission HPI Per Admitting Provider This is a 69-year-old male who presents with chronic persistent back and leg pain and failing since course of nonoperative care is here for surgical invention. Principal Diagnosis Lumbar spinal stenosis with radiculopathy Discharge Data Allergies Allergy/AdvReac Type Severity Reaction Status Date / Time Iodinated Contrast Media Allergy Unknown hives Verified 01/18/24 08:18 latex Allergy Unknown rash Verified 01/18/24 08:18 chlorhexidine Allergy Rash Verified 01/18/24 08:18 Consultations 01/18/24 13:19 Consult Hospitalist Routine Procedures Performed Operation Date: 01/18/24 09:35 Actual Procedures p L3-L4 Laminectomy Fusion with Spinal Cord Monitoring (Not Applicable) - Larry Bender DO Ordered Studies 01/18/24 09:35 FL lumbar spine 2-3V Routine Hospital Course (1) Lumbar disc herniation with radiculopathy: Patient underwent lumbar decompression fusion tolerated as well as negative orthopedic for postoperative. Postoperatively progressed appropriately. Marked improvement in his back pain. YAJAIRA drain decreasing well. Strength intact. Subsequent discharge home. Discharge orders instructions from the chart for further review. Total Time Total Time Spent Total Time Spent (In Minutes): 20 minutes Discharge Plan Discharge Items Patient Disposition: Home - Self-Care Reason For Visit: Lumbar Disc Herniation with Radiculopathy, Lumbar Discharge Diagnosis: Lumbar disc herniation with radiculopathy Activity: As commented below Non-emergency contact: Primary Care Provider Call non-emergency contact if: you have any medication questions Follow-up/Referrals: Faina Albert DO [Primary Care Provider] - Diet: Regular Addtl Attending Provider Instructions: ACTIVITY RECOMMENDATIONS: SELF CARE INSTRUCTIONS AFTER THORACIC/LUMBAR FUSIONS 1. You may walk to your tolerance. It is good exercise for your legs and back. Expect some back and intermittent leg aches and pains. 2. You may perform "counter-top" level activities (make a sandwich, syl with a project, etc.). 3. No bending or lifting of more than 10 pounds or back twisting of any nature (roll like a log when turning in bed). 4. You may ride in a car for 20-30 minutes at a time. No driving until after your first visit with your doctor. 5. Frequent changes of position and restricting sitting to 30 minutes at a time will help limit the amount of back spasms and stiffness you may experience. 6. You may discontinue the use of ambulatory aids (cane, crutches, etc.) once your strength and confidence allow. 7. 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 Do not take a tub bath, sit in a hot tub or go into a swimming pool until after your first recheck in the office. SPECIAL CARE INSTRUCTIONS: VERY IMPORTANT TO READ AND REVIEW A. Your surgical incision has been closed with a cosmetic suture under the skin that will dissolve in about 6 weeks. In 14 days, you can use a pair of clean scissors and cut the suture that is left outside of the skin at the ends of your incision. 1. The small skin tapes can be removed 7 days after surgery if they have not fallen off by that point. 2. You may keep the wound open to air as much as possible to promote healing after post-op day number 5 unless told otherwise by your doctor. 3. If you think the wound looks like it is becoming infected (redness or worsening drainage) and/or you are experiencing fever, chill or worsening back pain and muscle spasms, contact the office so that we may evaluate you as soon as possible. B. Complications are uncommon, but please contact us if you have any signs or symptoms of: 1. wound infection (fever higher than 102.5 degrees F, redness, separation of wound, drainage, or increasing pain from the incision) 2. blood clots in legs (pain, swelling, redness and warmth in legs) 3. urinary tract infection (fever higher than 102.5 degrees F, burning upon urination or increased frequency of urination) 4. nerve problems (inability to walk on your toes or heels, numbness, loss of bowel or bladder control) 5. any other symptoms that concern you C. Please call the office at if you have any concerns or questions about your operation or recovery. D. No smoking! Smoking drastically decreases the chance of a solid fusion. E. Do not take any anti-inflammatory medications (Indocin, Advil, Motrin, Aspirin, Naprosyn, etc.) as these may inhibit the chance of a solid fusion. Tylenol is okay to take for pain. MANAGING PAIN AFTER SPINAL SURGERY 1. Narcotic medication is intended for short-term use and will be provided for surgical pain. Surgical pain usually lasts for a period of 4-6 weeks. Narcotic medication includes Percocet, Vicodin, Darvocet, Tylenol #3 or Lortab. 2. Longer-term pain is more appropriately treated with non-narcotic medication such as Tylenol ES. 3. Muscle spasm is not appropriately treated with narcotics. Muscle relaxers such as Soma, Flexeril or Skelaxin can be used along with Tylenol ES. 4. Remember that we all live with some "aches and pains". This is not unusual or uncommon after an injury or as we get older. a. Back pain is expected and may include muscle spasms for 4 to 6 weeks after surgery. The pain should gradually improve. If the pain worsens for no apparent reason, please contact the office. b. Intermittent leg pain may also be experienced and should not be concerned about unless it worsens for no apparent reason. If so, please contact the office. 5. We will provide appropriate medication within the normal guidelines of their prescribed use. We will also be very cautious and aware of potential abuse and extended duration of patients' medication needs. a. Pain medications are for your comfort and to assist with sleep and rest so that the tissue can heal. They are not provided in order to return to normal activity and should not be used through the day. To do so or worsening pain at night can result from ongoing tissue damage and development of tolerance to the prescribed medicine. 6. Please allow 2-3 days to process refills. Prescriptions will not be mailed but must be picked up at the office. FOLLOW UP VISIT: Keep your scheduled follow-up appointment. Any questions, please call the office at . Pending Studies at Discharge: No Stand-Alone Forms: My [facility], Smoking Cessation Medications and DC Order Prescriptions: New tramadol 50 mg tablet 50 mg PO Q6H PRN (Reason: pain, moderate) Qty: 30 0RF oxycodone 5 mg tablet 5 mg PO Q6H PRN (Reason: pain) Qty: 30 0RF Continued fluticasone propion-salmeterol [Wixela Inhub] 250-50 mcg/dose Blister With Device 1 inh INHALATION QAM ipratropium-albuterol 0.5 mg-3 mg(2.5 mg base)/3 mL Solution For Nebulization 3 ml INHALATION QID PRN (Reason: sob) atorvastatin [Lipitor] 10 mg Tablet 10 mg PO PM meclizine 12.5 mg Tablet 12.5 mg PO UD PRN (Reason: Dizziness) diltiazem HCl 300 mg Capsule,Extended Release 24 Hr 300 mg PO QAM nystatin 100,000 unit/gram Cream 1 applic TOPICAL DAILY PRN (Reason: ud) ibuprofen 200 mg Tablet 200 mg PO Q6H PRN (Reason: Pain) albuterol sulfate 90 mcg/actuation Hfa Aerosol Inhaler 1 inh INHALATION QID PRN (Reason: sob) omeprazole 20 mg Tablet,Delayed Release (Dr/Ec) 20 mg PO QAM lubiprostone 8 mcg Capsule 8 mcg PO HS Jardiance 25 mg Tablet 25 mg PO QAM No Tears Eye Drop 1 dose OPB UD PRN (Reason: ud) Tradjenta 5 mg Tablet 5 mg PO QAM Discharge Orders: Discharge Order (Routine); Ordered 01/20/24 Ordered By: Larry Bender Admission Data Admit Date/Time: 01/18/24 10:47 Attending Provider: Larry Bender Admit Provider: Larry Bender Primary Care Provider: Faina Albert Other Providers: Ruthann Reese
[2024-01-20] MEDS ORDERED: LANTUS PER UNIT CHARGE SC SCH (09:00)
[2024-01-20] MEDS: LANTUS PER UNIT CHARGE SC SCH (09:04)
[2024-01-20] MEDS: MECLIZINE 12.5 MG TAB PO PRN (10:23)
--- NOTE | 2024-01-20 10:56 | Hospitalist Progress Note ---
Date of Service January 20, 2024 Assessment & Plan (1) Lumbar disc herniation with radiculopathy: Plan: - POD # 1 Lumbar decompression fusion of L2-L3 by Dr. Bender - Pain management, bowel regimen and DVT ppx per the primary team - PT/OT consults, pt is planning on outpatient therapy, lives at home with son as neighbor - Follow am CBC to monitor for acute blood loss, last hgb 14.9 on 12/23/23 - Hgb post op day 1 is normal (2) History of prostate cancer: Plan: - currently surveillance, PSA elevated to 9.4 up from 8.4 in Jul 2023 follows [facility], Dr. Kinney for medical oncology will need to f/u with urology as outpt-Discussed with the patient at bedside, he plans to call Dr. Horan before he leaves the hospital today. -follow-up within 2 to 4 weeks (3) DM type 2 (diabetes mellitus, type 2): Plan: -Accu-Cheks ACHS -Jardiance and linagliptin scheduled with a.m. meds per primary team -Glycemic pharmacy has been consulted -a1c 7.0 appreciate glycemic recs (4) HLD (hyperlipidemia): Plan: -Continue statin therapy, chronic, stable (5) Sleep apnea: Plan: -Continue CPAP at bedtime (6) HTN (hypertension): Plan: -BP stable, continue diltiazem (7) COPD (chronic obstructive pulmonary disease): (8) COPD exacerbation: (9) Asthma: Plan: - Nebs, wixela - starting on IV rocephin and doxy POD # 0 due to concern for COPD exac --Procal is negative, also afebrile, no leukocytosis, no evidence of PNA, - Discontinue IV Rocephin; continue oral doxy due to copd exac - should complete 7 day course, scheduled to finish on 01/25/24. Rx sent. - hypertonic saline - continue cpap HS, he has been weaned off oxygen, lungs clear today -CXR with congestive change, no consolidation -obtain bmp, cbc and BNP in a.m -he is not overtly overloaded on exam so will hold on diuresis at this time -pt with multiple cups of liquid at bedside - no return of hypoxia (10) Obesity: Plan: -BMI 37.3, encouraged weight loss and diet status post surgical procedure DVT ppx: teds, scds Lines: PIV x 1, YAJAIRA drain FEN/GI: Allow diabetic/heart healthy diet CODE: Full code Dispo: From home, likely to remain in the hospital x 1-2 days Thank you for involving us in the care of Mr. Boss. If you have any questions or concerns please do not hesitate to call. At this time medicine will follow along. A total of 43 minutes were spent with greater than 50% of that time face to face with the patient, personally reviewing all current laboratories, imaging studies, past medication reconciliation, outpatient chart review, and discussion with specialists to collaborate care for the patient with attending. Please see attending documentation for corrections and/or additions. Admission and Anticipated Discharge Date Admission Date: January 18, 2024 Supervising Physician Co-Signing Physician Notes Patient seen and examined Patient reviewed with Advanced Practitioner Agree with Advanced Practitioner's evaluation, findings and plans and take full responsibility Subjective Patient is seen and examined at bedside, states he is doing well. Anticipating home discharge later this afternoon. He reports minimal pain in his lower back, still has some numbness and tingling but states that this is improved compared to previously. YAJAIRA drain in place, draining small amounts of serosanguineous fluids. He had a bowel movement last evening, urinating without difficulty. Patient denies any urinary complaints. We discussed elevated PSA of 9.4, up from 8.4 from July 2023. He was encouraged to call his urologist, Dr. Horan and plans to do so before he leaves the hospital. Review of Systems Review of Systems: Constitutional: No fever, sweats or chills Eyes: No diplopia, no worsening or blurred vision ENT: normal hearing, no trouble swallowing Respiratory: No cough, sputum, dyspnea at rest or on exertion Cardiovascular: No chest pain, tightness or palpitations Abdomen: No pain, nausea, vomiting, diarrhea or constipation Back: Minimal pain, no tightness, YAJAIRA drain in place Musculoskeletal: No joint pain, calf pain, swelling Neurologic: No weakness, + chronic numbness/tingling, or balance problems Psychiatric: No anxiety or depression Skin: No rash or itch Physical Exam Physical Exam: General: awake, alert, no apparent distress, obese white male Head: Normocephalic, atraumatic ENT: PERRL, EOMI, no pharyngeal exudate, mucous membranes moist Chest: Clear to auscultation, on room air, very faint rales, improved with cough Cardiac: Regular rate and rhythm, no murmur, no JVD, normal peripheral pulses, good capillary refill Abdominal: NABS x 4 quadrants, soft, nondistended, nontender to palpation, no rebound or guarding Back: Dressing C/D/I, incision site appears to be healing well, no surrounding erythema, no purulent drainage, YAJAIRA drain in place draining serosanguineous fluids Extremities: Normal inspection, no peripheral edema or erythema, calfs nontender to palpation Psych: Normal mood and affect Neuro: AAO x 3, strength intact bilaterally and rated 5/5, no motor deficits, speech is clear, no peripheral sensory deficits Results & Data Results & Data Vital Signs (Past 12 Hours) Vital Signs Temp Pulse Resp BP Pulse Ox O2 Del Method 01/20/24 07:21 77 18 92 Room Air 01/20/24 07:09 36.8 C 78 16 131/81 93 Room Air Laboratory Results 01/18/24 21:25 Gram Stain - Final Sputum, Expectorated Sputum Culture - Preliminary Moderate normal marlon present, final report to follow. 01/20/24 01/20/24 01/20/24 07:29 06:33 05:18 WBC 9.29 RBC 4.97 Hgb 14.0 Hct 42.7 MCV 85.9 MCH 28.2 MCHC 32.8 RDW Std Deviation 46.8 H RDW Coeff of Jacek 15.0 H Plt Count 182 MPV 11.9 Sodium 133 L Potassium 4.7 Chloride 99 Carbon Dioxide 26 Anion Gap 8 BUN 16 Creatinine 0.74 Est Cr Clr Drug Dosing 120.9 Est GFR ( Amer) 110.6 Est GFR (Non-Af Amer) 95.4 BUN/Creatinine Ratio 21.6 H Glucose 199 H POC Glucose 153 H 161 H Calcium 9.3 B-Natriuretic Peptide 24 Prostate Specific Ag Procalcitonin 01/19/24 01/19/24 01/19/24 20:45 16:38 11:53 WBC RBC Hgb Hct MCV MCH MCHC RDW Std Deviation RDW Coeff of Jacek Plt Count MPV Sodium Potassium Chloride Carbon Dioxide Anion Gap BUN Creatinine Est Cr Clr Drug Dosing Est GFR ( Amer) Est GFR (Non-Af Amer) BUN/Creatinine Ratio Glucose POC Glucose 205 H 195 H Calcium B-Natriuretic Peptide Prostate Specific Ag 9.398 H Procalcitonin < 0.02 01/19/24 11:34 WBC RBC Hgb Hct MCV MCH MCHC RDW Std Deviation RDW Coeff of Jacek Plt Count MPV Sodium Potassium Chloride Carbon Dioxide Anion Gap BUN Creatinine Est Cr Clr Drug Dosing Est GFR ( Amer) Est GFR (Non-Af Amer) BUN/Creatinine Ratio Glucose POC Glucose 181 H Calcium B-Natriuretic Peptide Prostate Specific Ag Procalcitonin
== END 2024-01-20 17:35 | disposition home health service (06) | DRG 454 ==
LOC: ASU 07:34 → 3E 07:34 → INTOOBSV 11:40 → OBSVTOIN 11:40

== ENCOUNTER 2024-11-30 05:48 | Observation (INO) ==
--- NOTE | 2024-11-22 11:00 | Anesthesiology Consultation ---
Date of Service November 22, 2024 Assessment & Plan (1) Encounter for pre-operative examination: - medical clearance 11/08/24: "...low to intermediate cardiac risk..." - Per product representative on 11/20/24: No known infectious disease contacts, current infectious disease symptoms in past 10 days or COVID positive test result in the past 30 days. Chart Review Chart Review: Acceptable Risk for Surgery and Patient NOT seen in Pre Admission Testing History Surgery Operation Date: 11/30/24 07:30 Proposed Procedures p Robotic assisted Laparoscopic Radical Retropubic Prostatectomy Possible Open, Possible Pelvic Lymph Node Dissection - Curtis Horan, DO Height/Weight Height: 5 ft 8 in Weight: 120.202 kg Allergies Allergy/AdvReac Type Severity Reaction Status Date / Time chlorhexidine Allergy Mild Rash Verified 11/20/24 12:42 latex Allergy Mild rash Verified 11/20/24 12:42 Iodinated Contrast Media Allergy Unknown hives Verified 11/20/24 12:42 semaglutide [From Ozempic] AdvReac Mild Bloated Verified 11/20/24 12:42 Januvia Allergy Mild Vomiting Uncoded 11/20/24 12:42 Metformin Allergy Mild Vomiting Uncoded 11/20/24 12:42 Medications Home Medications Medication Instructions Recorded Confirmed Last Taken albuterol sulfate 90 mcg/actuation 1 inh inhalation QID PRN sob 10/15/23 11/20/24 01/17/24 18:00 aerosol inhaler diltiazem HCl 300 mg capsule,24 300 mg PO QAM 10/15/23 11/20/24 01/18/24 07:40 hr,extended release empagliflozin 25 mg tablet 25 mg PO QAM 10/15/23 11/20/24 01/08/24 (Jardiance) ipratropium 0.5 mg-albuterol 3 mg 3 ml inhalation QID PRN sob 10/15/23 11/20/24 01/17/24 12:00 (2.5 mg base)/3 mL nebulization soln lubiprostone 8 mcg capsule 8 mcg PO HS PRN Constipation 10/15/23 11/20/24 01/17/24 19:00 nystatin 100,000 unit/gram topical 1 applic topical DAILY PRN ud 10/15/23 11/20/24 01/11/24 cream omeprazole 20 mg tablet,delayed 20 mg PO QAM 10/15/23 11/20/24 01/17/24 05:00 release linagliptin 5 mg tablet (Tradjenta) 5 mg PO QAM 12/29/23 11/20/24 01/17/24 05:00 artificial tears(hypromellose) 0.3 1 drp ophthalmic (eye) TID PRN ud 09/21/24 11/20/24 Unknown % eye drops clobetasol 0.05 % topical cream 1 applic topical DAILY PRN . 09/21/24 11/20/24 Unknown meclizine 12.5 mg tablet 12.5 mg PO DAILY PRN Dizziness 09/21/24 11/20/24 Unknown atorvastatin 20 mg tablet 20 mg PO PM 11/20/24 11/20/24 Unknown fluticasone fur. 100 mcg-umeclid 1 inh inhalation QAM 11/20/24 11/20/24 Unknown 62.5 mcg-vilant 25 mcg inhalat.powder (Trelegy Ellipta) Past Medical History Medical History (Updated 11/22/24 @ 10:55 by Pinky Call PA-C) Asthma using more frequently d/t pollen Benign neoplasm of colon Chronic cough COPD (chronic obstructive pulmonary disease) DDD (degenerative disc disease), lumbar DM type 2 (diabetes mellitus, type 2) GERD (gastroesophageal reflux disease) Hearing deficit wears hearing aids History of cellulitis treated for "3 weeks ago" in right leg History of colon polyps History of paroxysmal supraventricular tachycardia follows with Dr. Sorin FREITAS (hyperlipidemia) HTN (hypertension) IBS (irritable bowel syndrome) Obesity Osteoarthritis Prostate cancer first treated 2020 (surgery) Pulmonary nodule Sleep apnea CPAP TIA (transient ischemic attack) >no problems Past Family History Family History Mother , in her 60s Diabetes Myocardial infarction Breast cancer Hypertension Father , at 78yo Myocardial infarction Stroke Hypertension Breast cancer Brother Heart disease Stroke Brother Prostate cancer Sister Diabetes Myocardial infarction Sister Medical history unknown Sister Medical history unknown Sister Cancer Pt uncertain of type Daughter Overdose Son No problems noted. Daughter Medical history unknown Other No family history of adverse response to anesthesia Past Surgical History Surgical History History of cardiac catheterization most recent early - no stents. History of carpal tunnel surgery Bilateral History of cataract surgery right/left History of colonoscopy History of esophagogastroduodenoscopy (EGD) History of left shoulder replacement History of lumbar laminectomy 01/2024>MN with Yulia History of prostate biopsy History of prostate surgery TURP History of rib fracture Rt - pt reports hardware in place 2020 History of right shoulder replacement History of surgery on lower extremity RLE x 13 procedures r/t trauma History of umbilical hernia repair S/P TURP (transurethral resection of prostate) 2020 Social History Smoking Status: Former smoker Smoking cigarettes per day: 3 PPD x 40 yrs Do You Dip or Chew Tobacco: No Smoking End Date: 2016 Hx Alcohol Use: No Hx Substance Use: No substance use type: does not use Lab Results Anesthesia Preop Results Results Anesthesia Widget: 2 WBC 6.90 K/ul (4.8-10.8) 11/21/24 Hgb 15.8 g/dl (14.0-18.0) 11/21/24 Hct 48.6 % (42.0-52.0) 11/21/24 Plt 206 K/uL (130-400) 11/21/24 Na 137 mmol/L (136-145) 11/21/24 K 4.1 mmol/L (3.5-5.1) 11/21/24 Cl 101 mmol/L (98-107) 11/21/24 CO2 28 mmol/L (21-32) 11/21/24 BUN 17 mg/dl (6-23) 11/21/24 Creat 0.81 mg/dl (0.6-1.4) 11/21/24 Glucose Level 157 mg/dl (70-99(Fasting)) H 11/21/24 Testing Electrocardiogram Date: 12/23/23 NSR with sinus arrhythmia, rate 67 bpm Chest X-Ray Date: 01/18/24 *1 view* Cardiomegaly with mild congestive change and trace bilateral pleural effusions. Echocardiogram Date: 10/20/19 EF 55% Grade I diastolic dysfunction Mild cLVH Mildly dilated LA Moderately dilated right ventricle and atria Mild mitral regurgitation Mild aortic regurgitation Mild tricuspid regurgitation Other Testing PET scan 10/11/24 1. Prostatomegaly with large TURP defect. Tracer mixed with urine within the postsurgical defect limits evaluation of the prostate gland. 2. No pathologic lymph nodes or evidence of metastatic disease. Abdomen pelvis CT 07/16/24 No nephrolithiasis or obstructive uropathy. Mild bladder wall thickening likely representing sequela of chronic outlet obstruction.
[2024-11-30] MEDS: LR 15ML/HR IV SCH (06:13)
[2024-11-30] MEDS: HEPARIN SOD 5,000 UNIT/0.5 ML VIAL SC SCH (06:13)
--- NOTE | 2024-11-30 06:53 | History & Physical Bridge Note ---
Date of Service November 30, 2024 History & Physical Bridge Note I have examined the patient, reviewed the History & Physical and in the interval since the performance of the History & Physical I have noted the following changes of clinical significance: no changes noted
[2024-11-30] MEDS ORDERED: ONDANSETRON INJ 2 MG/ML 2 ML VIAL IV PRN ×2 (07:00→14:29)
[2024-11-30] MEDS ORDERED: PROMETHAZINE HCL 6.25 MG in SODIUM CHLORIDE 0.9% 50 ML IV PRN (07:00)
[2024-11-30] MEDS ORDERED: ATROPINE SULFATE 0.1 MG/ML 10ML SYR IV PRN (07:00)
[2024-11-30] MEDS ORDERED: ePHEDrine sulfate 50 MG/ML AMP IV PRN (07:00)
[2024-11-30] MEDS ORDERED: DEXAMETHASONE SOD INJ 4 MG/ML VIAL ONE (07:10)
[2024-11-30] MEDS ORDERED: ONDANSETRON INJ 2 MG/ML 2 ML VIAL ONE (07:10)
[2024-11-30] MEDS ORDERED: MIDAZOLAM HCL 1 MG/ML 2ML VIAL ONE (07:10)
[2024-11-30] MEDS ORDERED: fentaNYL citrate PF 100 MCG/2 ML VIAL ONE ×2 (07:10→08:10)
[2024-11-30] MEDS ORDERED: LIDOCAINE 2% 2 ML VIAL/AMP(20MG/ML) INFIL ONE (07:10)
[2024-11-30] MEDS ORDERED: PROPOFOL IV EMULSION 10 MG/ML 20 ML VIAL IV ONE (07:10)
[2024-11-30] MEDS ORDERED: ROCURONIUM BROMIDE 10 MG/ML 5 ML VIAL IV ONE ×3 (07:10→10:17)
[2024-11-30] MEDS: ceFAZolin 3000MG 3,000 MG/72.5 ML BAG IV SCH (07:30)
[2024-11-30] MEDS ORDERED: KETAMINE HCL 10MG/ML SYR ONE (07:56)
[2024-11-30] MEDS ORDERED: PHENYLEPHRINE HCL 10 MG/ML VIAL ONE (08:44)
[2024-11-30] MEDS ORDERED: ACETAMINOPHEN 1000 MG/100 ML IV IV ONE (08:47)
[2024-11-30] MEDS ORDERED: ALBUTEROL HFA 8 GM INHALER INH ONE (09:39)
[2024-11-30] MEDS: SURGICEL ABSORB HEMOSTAT 2IN X 14IN TOP ONE (10:55)
[2024-11-30] MEDS ORDERED: ceFAZolin 330 MG/ML 1 GM VIAL ONE (11:24)
[2024-11-30] MEDS: ceFAZolin 3000MG 3,000 MG/72.5 ML BAG IV ONE (11:28)
[2024-11-30] MEDS: FLOSEAL HEMOSTATIC MATRIX 10ML TOP ONE (11:42)
[2024-11-30] MEDS: BUPIVACAINE 0.5 % 5 MG/1 ML MPF 30ML VIAL ONE (11:58)
[2024-11-30] MEDS ORDERED: SUGAMMADEX SODIUM 200 MG/2 ML VIAL IV ONE (11:58)
--- NOTE | 2024-11-30 12:03 | Operative Report ---
PG Post Operative Report Pre & Post Diagnosis Operation Date: 11/30/24 07:30 Pre-Op Diagnosis: Prostate Cancer Post-Op Diagnosis: Prostate Cancer I identified the patient and participated in the time-out.: Yes Procedure Operation Date: 11/30/24 07:30 Actual Procedures p Robotic Assisted Laparoscopic Radical Retropubic Prostatectomy, Pelvic Lymph Node Dissection, Extensive Lysis of Adhesions(Not Applicable) - Curtis Horan DO Surgeon Curtis Horan, II, DO Metal Miner Thad GUZMAN Estimated Blood Loss 150 Findings Consistent with Post-Op Diagnosis Severe adhesion of the omentum to the ventral portion of the abdomen and umbilicus region especially over top of the area of previous significant hernia. Bilateral inguinal hernias. Large and small bowel notable dilated, Specimens Prostate and Seminal Vesicle Left Pelvic Lymph Nodes Right Pelvic Lymph Nodes. Drains 18 silicone Hayden catheter. Anesthesia Type General Complications none Disposition Disposition: Recovery Room Indications Patient with Prostate Cancer. Risk and benefits were discussed at length. Patient elected to undergo robotic assisted laparoscopic Radical Prostatectomy. Description of Procedure The patient was brought to the operative suite and placed under general endotracheal intubation anesthesia in the supine position. The patient was transferred to the dorsal lithotomy position. At this point, the patient prepped and draped in the usual sterile fashion and a timeout was completed. Preoperative antibiotics of Ancef 2 grams had been given. UNA's and SCD's were placed on the patient's lower extremities. A catheter was placed using sterile technique. With the time out completed the patient was placed into Trendelenburg and the skin at the umbilicus was anesthetized. Due to the patient's previous large hernia repair and mesh placement, A small incision was made on the left lateral edge of the rectus muscle just superior to the line above the umbilicus. A Varess Needle was placed and confirmed to be in the abdominal cavity. Water drop test passed. The Abdominal cavity was insufflated to 15 mmHG. The camera port was then placed. A laparoscopic camera was placed into the port and the abdominal cavity inspected. Significant adhesions were noted throughout the abdomen especially along the midline from the previous umbilical and ventral hernia repair. There was no bowel seen within the severe adhesions. It largely appeared to be omentum. The adhesions did appear to be thickened and contained adhesion of the omental fat. At this point, the skin was marked for port placement and 8mm working ports were placed. The skin was anesthetized down to fascia and an approx 1cm incision was made to place the 2 x 8mm ports. A 12mm and 5 mm assistant baseball coach ports were also placed in similar fashion under direct visualization. The port to be placed at the umbilicus was held off on until adequate lysis of adhesions was completed. Utilizing the laparoscopic equipment and cold scissors the adhesions were both bluntly and sharply dissected. Care was taken to monitor the contents. The tissue though dense was found to only contain omental fat and adhesions of material. Extensive lysis of adhesion was completed. Greater than 30 minutes for lysis of the multiple adhesions around the umbilical region and midline. Once the adhesions were cleared the area was inspected. Just superior to the edge of the likely mesh material the area was assessed and anesthetized. The final 8 mm robotic port was then placed in this. No injury or other area of concern was noted. The patient was transferred into steep Trendelenburg position and the legs lowered. The robot was positioned and docked. The camera was placed and all trocars were positioned under direct visualization. Thad GUZMAN was integral in port placement, camera utilization, and docking procedure. She remained in sterile attire and then proceeded to assist the remainder of the case. At this point, I transitioned to the robotic console. At this point, the sigmoid colon was mobilized superiorly and the pelvis assesse d. Additional thickened extensive Adhesions were freed to allow mobilization. The peritoneum in the midline was opened between rectum and bladder and the vas deferens and seminal vesicles exposed. These were dissected with blunt technique. The vas was clipped and cut and mobilized. Cautery was used to assist dissection avoiding the tissue posteriorly near the rectum. The tissues lateral to the seminal vesicles were clipped with a hemolock and all bleeding controlled. This was taken as inferior as possible from this position. The medial umbilical ligaments were then identified and the peritoneum directly lateral on the right followed by the left was opened. The tissues were bluntly dissected to free the bladder's lateral attachments. This was taken down to the pubic bone and exposed the endopelvic fascia bilaterally. The medial ligaments were cut and the bladder dropped. The tissues was dissected anterior to the prostate. The right and left pelvic lymph tissue was identified in relation to the iliac vessels. Distal dissection was taken to the Node of Thuan. Inferiorly the obtorator vessels and nerve were identified. Lymphatic tissue within the surround fat tissue was dissected. This packet of tissues were sent for pathologic analysis and lymph node assessment. This was done for each separate side. Hemostatic agent was placed on the exposed vessels. The endopelvic fascia on each side was then opened and the lateral edges of the prostate dissected. The Dorsal venous complex of the prostate was dissected and assessed. A 2-0 suture was used to ligate the vessels. A suspension stitch was used and clipped. Electrocautery was used to cut the anterior attachments, the puboprostatic ligaments, and venous tissues. The hayden was manipulated to better visual the bladder neck and dissection was taken using electrocautery. The bladder neck was opened and dissected from the prostate. The UO were identifed and dissection taken in a direction to avoid each side. The vas stump and seminal vesicles were exposed and used to assist in traction to dissect. The prostatic pedicles were better exposed. The posterior prostate was dissected. An attempt was made to limit cautery and utilize cold dissection of the lateral posterior prostate to attempt preservation of the neurovascular bundle bilaterally. Hemolock clips were utilized to clip the prostatic pedicle bilaterally. The dissection was taken to the apex of the prostate. The anterior prostate was released and the urethra exposed. Cold cutting was used to open the anterior portion and expose the catheter. This was removed and the urethra incised. The prostate was further freed and grasped and removed from the field. The entire dissection bed was inspected.Hemostatic agent was placed in the region. No areas of injury or bleeding was noted. Care was taken to examine the perirectal tissues. A probe was placed and no injuries or other issues were observed. The bladder neck and urethra were then approximated with a running barbed suture starting at the 5 o'clock position and moving to the 12 o'clock on each side. At approx the 9 o'clock position, a 3rd barbed suture was placed and the anastomosis was closed. This was secured at the anterior portion. A leak test was completed without any evidence of issues. The entire dissection space was inspected one final time. No bleeding or injuries or areas of concern were noted. No tumor or other concerning features were noted. At this point, the robot was undocked and moved away from the patient. The patient was taken out of Trendelenberg. The port sites were all assessed laparoscopically. The endoscopic bag was moved into the midline port. The 12 mm port site was closed with the Tre Harding device and a 2-0 Vicryl suture. The other ports were assessed and no issues observed. The umbilical incision was opened further exposing fascia which was then opened in order to removed the prostate in the bag. The prostate was removed. A running 1-0 PDS suture was used to close fascia. The skin at each site was closed with stapler. The area was cleaned and bandages placed on each incision. The patient was cleaned and bandaged, aroused from anesthesia, and transferred to the pacu in stable condition having tolerated the procedure well with no complications. I was present and participated in all aspects of the procedure. Thad GUZMAN was critical in the portions as mentioned above. Will plan to observe postoperatively and monitor. Hayden to be remain in place until followup. I attest to the content of the Intraoperative Record and any orders documented therein. Any exceptions are noted below.
[2024-11-30] MEDS: NovoLIN-R INSULIN PER UNIT CHARGE ONE (12:32)
--- NOTE | 2024-11-30 12:35 | XRay Report ---
XR chest 1V portable CLINICAL HISTORY: hypoxia COMPARISON STUDY: 01/18/2024 FINDINGS: Compared with the prior examination, the interstitial lung markings are more pronounced. Ca rdiomegaly and pulmonary vascular congestion is present. There are small patchy areas of focal air sp kwabena opacity in the lung bases making it difficult to exclude an infectious process as well. IMPRESSION: Findings consistent with CHF. Small pneumonic infiltrates not excluded. ACT 112: Negative or not required by law. Electronically signed by: Nafisa Larry M.D. 11/30/2024 12:34 PM
[2024-11-30] MEDS: fentaNYL citrate PF 100 MCG/2 ML VIAL IV PRN (12:39)
[2024-11-30] MEDS: HYDROmorphone INJ 2 MG/ML SYR/VIAL IV PRN (13:08)
[2024-11-30] MEDS: NovoLIN-R INSULIN PER UNIT CHARGE SC STA (13:22)
[2024-11-30 13:28] LABS: Basophils # (auto) 0.09 K/uL (0.00-0.20); Basophils % (auto) 0.5 %; Hematocrit (blood only) 45.6 % (42.0-52.0); Hemoglobin 15.2 g/dl (14.0-18.0); Immature Granulocytes # (auto) 0.26 K/uL (0.01-0.20); Immature Granulocytes % (auto) 1.5 %; Lymphocytes # (auto) 1.37 K/uL (1.20-3.40); Lymphocytes % (auto) 8.2 %; Mean Corpuscular Hemoglobin 29.2 pg (25.0-34.0); Mean Corpuscular Hgb Conc 33.3 g/dL (32.0-36.0); Mean Corpuscular Volume 87.5 fL (80.0-100.0); Mean Platelet Volume 11.8 fL (9.4-12.4); Monocytes # (auto) 0.21 K/uL (0.11-0.59); Monocytes % (auto) 1.3 %; Neutrophils # (auto) 14.87 K/uL (1.40-6.50); Neutrophils % (auto) 88.5 %; Platelet Count 147 K/uL (130-400); RDW Coefficient of Variation 14.4 % (11.5-14.5); RDW Standard Deviation 46.4 fL (36.4-46.3); Red Blood Count 5.21 M/uL (4.70-6.10)
[2024-11-30 13:53] LABS: Calcium 8.7 mg/dl (8.6-10.3); Potassium 4.1 mmol/L (3.5-5.1)
[2024-11-30 14:02] LABS: BUN Creatinine Ratio 15.8 (10-20); Creatinine Clr Calc Pharmacy 87.8 ml/min
[2024-11-30] MEDS ORDERED: PHARMACY GLYCEMIC MGMT CONSULT PRN (14:29)
[2024-11-30] MEDS ORDERED: HYDROmorphone INJ 0.5 MG/0.5 ML SYR IV PRN ×2 (14:29)
[2024-11-30] MEDS ORDERED: ALBUTEROL HFA 8 GM INHALER INH PRN (14:29)
[2024-11-30] MEDS ORDERED: oxyCODONE HCL IR 5 MG TAB (IMMEDIATE RELEASE) PO PRN (14:29)
[2024-11-30] MEDS ORDERED: ALBUT/IPRATROP 3MG/0.5MG NEB 3 ML VIAL INH PRN (14:29)
[2024-11-30] MEDS ORDERED: MECLIZINE 12.5 MG TAB PO PRN (14:29)
[2024-11-30] MEDS ORDERED: ARTIFICIAL TEARS OP PRN (14:39)
[2024-11-30] MEDS ORDERED: LUBIPROSTONE 8 MCG CAP PO PRN (14:40)
[2024-11-30] MEDS ORDERED: GLUCOSE 40% GEL 15 GM TUBE PO PRN (14:45)
[2024-11-30] MEDS ORDERED: GLUCAGON FOR INJ 1 MG VIAL SQ PRN (14:45)
[2024-11-30] MEDS ORDERED: DEXTROSE 50% 50 ML SYRINGE IV PRN (14:45)
[2024-11-30] MEDS ORDERED: GLUCOSE 10 TAB/TUBE PO PRN (14:45)
[2024-11-30] MEDS ORDERED: CARBOHYDRATES FOR HYPOGLYCEMIA PO PRN (14:45)
[2024-11-30] MEDS: SODIUM CHLORIDE 0.9% 1,000 ML IV SCH (14:51)
[2024-11-30] MEDS: INSULIN HUMAN REGULAR PER UNIT 10 UNITS in SYRINGE 9.9 ML IV STA (14:58)
[2024-11-30] MEDS: LANTUS PER UNIT CHARGE SC ONE (14:59)
[2024-11-30] MEDS: INSULIN ASPART PER UNIT CHARGE SC SCH (15:06)
--- NOTE | 2024-11-30 15:13 | Anesthesiology Progress Note ---
Date of Service November 30, 2024 Anesthesia Post Procedure Vital Signs Vital Signs: Temp Pulse Pulse Pulse Resp BP BP 11/30/24 14:30 37 C 100 H 18 114/69 11/30/24 14:29 37 C 100 H 18 114/69 11/30/24 14:10 96 H 14 123/69 11/30/24 13:55 36.9 C 97 H 16 118/70 11/30/24 13:45 96 H 17 103/68 11/30/24 13:35 95 H 18 126/71 11/30/24 13:25 90 17 120/71 11/30/24 13:15 92 H 15 121/74 11/30/24 13:05 88 16 120/70 11/30/24 12:55 93 H 16 125/65 11/30/24 12:45 84 15 103/65 11/30/24 12:35 86 17 128/65 11/30/24 12:25 100 H 21 121/73 11/30/24 12:18 90 15 11/30/24 12:17 36.0 C L 91 H 19 137/71 11/30/24 06:02 36.7 C 98 H 20 110/77 Pulse Ox O2 Del Method O2 Flow Rate FiO2 11/30/24 14:30 94 Nasal Cannula 5 11/30/24 14:29 94 Nasal Cannula 5 11/30/24 14:10 92 BiPAP 36 11/30/24 13:55 94 BiPAP 36 11/30/24 13:45 95 BiPAP 38 11/30/24 13:35 89 L BiPAP 40 11/30/24 13:25 92 BiPAP 30 11/30/24 13:15 95 BiPAP 40 11/30/24 13:05 93 BiPAP 40 11/30/24 12:55 96 BiPAP 40 11/30/24 12:45 96 BiPAP 40 11/30/24 12:35 96 BiPAP 40 11/30/24 12:25 95 BiPAP 40 11/30/24 12:18 94 40 11/30/24 12:17 92 BiPAP 40 11/30/24 06:02 92 Room Air Pain Intensity Abdomen: Pain Intensity: 8 Transfer of Care Handoff Completed per policy Notes Mental Status: alert / awake / arousable Patient Amnestic to Procedure: Yes Nausea / Vomiting: adequately controlled Pain: adequately controlled Airway Patency, RR, SpO2: stable & adequate BP & HR: stable & adequate Hydration State: stable & adequate Anesthetic Complications: no major complications apparent Notes: Patient with baseline chronic respiratory problems. Surgery was prolonged in steep trendelenberg, fluids were limited during procedure. He was extubated to BiPAP and had a smooth PACU course. BiPAP weaned and dispositioned to PCU awake and alert on non-rebreather facemask with oxygen saturations in the mid 90s.
--- NOTE | 2024-11-30 15:13 | Pharmacy Report ---
Pharmacy Glycemic Short Note 2 - Date of Service November 30, 2024 - Glycemic Short BSG Results (Last 24 hours): 11/30/24 11/30/24 11/30/24 06:11 12:25 12:27 Glucose POC Glucose 233 H 307 H* 349 H* 11/30/24 11/30/24 11/30/24 12:51 13:06 13:53 Glucose 374 H* POC Glucose 332 H* 316 H* 11/30/24 14:37 Glucose POC Glucose 363 H* OUTPATIENT ANTIDIABETIC REGIMEN: * Jardiance 25mg po daily * Tradjenta 5mg po daily HbA1c ordered for 12/01/24 AM labs. ASSESSMENT: * 69 year old male admitted today for prostatectomy and pelvic lymph node dissection. (POD #0) Pharmacy has been consulted for glycemic management postop * BSG pre op was 233mg/dL and post op was 307mg/dL. Patient received 8mg iv dexamethasone preop. He was give 10 units of IV regular insulin at ~1230 and 10 units of SQ regular insulin at ~1330. At 1437 his BSG was still 363mg/dL. Lantus 25 units SQ x 1 was ordered and a Lantus scale (0,10, or 15 units depending on BSG) was added at HS. A weight based bolus insulin regimen with a stress of 2 was started. PLAN FOR INPATIENT GLYCEMIC CONTROL: * Hold outpatient oral diabetes medications * Basal insulin * Lantus 25 units SQ x 1, Lantus scale at HS (hold for BSG < 160, 10 units for BSG 160-190, 15 unit for BSG > 190). * Bolus insulin * NovoLog per scale ACHS or Q6hrs while NPO * Goal Range: Low 120 mg/dL - High 150 mg/dL * Correction Factor: 25 mg/dL/unit * Nutritional / Prandial insulin per carb ratio of 1 unit per 9 grams CHO consumed
[2024-11-30] MEDS: ACETAMINOPHEN 325 MG TAB PO SCH (18:04)
[2024-11-30] MEDS: LANTUS PER UNIT CHARGE SC SCH (20:47)
[2024-11-30] MEDS: HEPARIN SOD 5,000 UNIT/0.5 ML VIAL SQ SCH (20:47)
[2024-11-30] MEDS: DOCUSATE SODIUM 100 MG CAP PO SCH (20:47)
[2024-11-30] MEDS: oxyCODONE HCL IR 5 MG TAB (IMMEDIATE RELEASE) PO PRN (20:49)
[2024-11-30] MEDS: ATORVASTATIN 20 MG TAB PO SCH (20:49)
[2024-11-30] MEDS: ceFAZolin 2000MG 2,000 MG/15 ML SYR IV SCH (20:51)
[2024-12-01] MEDS: INSULIN ASPART PER UNIT CHARGE SC ONE (00:15)
[2024-12-01 06:43] LABS: Basophils # (auto) 0.02 K/uL (0.00-0.20); Basophils % (auto) 0.2 %; Hematocrit (blood only) 37.9 % (42.0-52.0); Hemoglobin 12.6 g/dl (14.0-18.0); Immature Granulocytes # (auto) 0.08 K/uL (0.01-0.20); Immature Granulocytes % (auto) 0.9 %; Lymphocytes # (auto) 1.02 K/uL (1.20-3.40); Lymphocytes % (auto) 11.3 %; Mean Corpuscular Hemoglobin 28.8 pg (25.0-34.0); Mean Corpuscular Hgb Conc 33.2 g/dL (32.0-36.0); Mean Corpuscular Volume 86.7 fL (80.0-100.0); Mean Platelet Volume 11.8 fL (9.4-12.4); Monocytes # (auto) 0.93 K/uL (0.11-0.59); Monocytes % (auto) 10.3 %; Neutrophils # (auto) 6.95 K/uL (1.40-6.50); Neutrophils % (auto) 77.3 %; Platelet Count 135 K/uL (130-400); RDW Coefficient of Variation 14.5 % (11.5-14.5); RDW Standard Deviation 46.1 fL (36.4-46.3); Red Blood Count 4.37 M/uL (4.70-6.10)
[2024-12-01 06:55] LABS: BUN Creatinine Ratio 16.7 (10-20); Calcium 8.3 mg/dl (8.6-10.3); Creatinine Clr Calc Pharmacy 134.4 ml/min
--- NOTE | 2024-12-01 07:41 | Hospitalist Consultation ---
Date of Consultation December 01, 2024 Assessment & Plan (1) Prostate cancer: (2) Hypoxia: (3) HTN (hypertension): (4) DM type 2 (diabetes mellitus, type 2): (5) COPD (chronic obstructive pulmonary disease): (6) Asthma: (7) GERD (gastroesophageal reflux disease): (8) Sleep apnea: (9) S/P TURP (transurethral resection of prostate): (10) Hematuria: Plan #Prostate Cancer, s/p prostatectomy 69yo male with PMHx significant for HTN, HLD, DM II, WING (CPAP HS), COPD/Asthma, GERD, with prior history of TURP in 2020 (initial diagnosis 2019) presented with recurrence prostate cancer dx at outlying facility (3+4) presented for robotic prostatectomy with Dr Horan on 11/30. Has been seen by radiation oncology and planned PET scan which has been reviewed and report without pathologic lymph nodes or evidence for metastatic disease at that time 10/11/24. s/p Robotic Assisted Laparoscopic Radical Retropubic Prostatectomy, Pelvic Lymph Node Dissection, Extensive Lysis of Adhesions(Not Applicable) - Curtis Horan, DO on 11/30. EBL 150 * Per OP report, severe adhesion of the omentum to the ventral portion of the abdomen and umbilicus region especially over top of the area of previous significant hernia. Bilateral inguinal hernias. Large and small bowel notable dilated * Pathology pending for prostate/seminal vesicle, L pelvic lymph nodes and R pelvic lymph nodes WBC wnl 9k. Hgb 15.2--> 12.6, acute blood loss anemia from surgery and suspect dilutional aspect from IVF (received ~2L per I&O and is continued w/ NS @ 100cc/hr) BUN/Cr stable 11/0.66 Remains on 4L NC and NOT on O2 at baseline CXR post-op given difficulty to come off supplemental O2, noting CHF. - Repeat CXR now, add BNP/Mag to labs. Consider ECHO given faint murmur but no significant murmur and NSR on telemetry (hx SVT) - Lasix 40mg IV x 1 and 40meq Kcl PO to keep stores stable. - Titrate O2 as able, CPAP/BiPAP HS Hayden in place-no overt hematuria and tubing with clear urine- management per urology. Bowel regimen, PT/OT per primary service Heparin SQ BID for DVT proph Labs on repeat #Hypoxia, Acute post operative respiratory insufficiency CXR post-op reporting CHF/infiltrates. No hx DVT/PE reported but should monitor for any issues. Chronic bronchitis from prior COVID infection. Difficult post-op to arouse/titrate off O2 and BiPAP used overnight. CXR post-op noting CHF, no prior hx. BNP added to labs w/ repeat CXR and lasix IV x 1 as outlined above Mucinex BID, continue home nebs for COPD/Asthma and check mag level Titrate O2 as able, incentive spirometer CPAP/BiPAP HS #HTN, HLD Continues on diltiazem 300mg daily(also hx paroxysmal SVT, has been NSR on telemetry. BP stable 110/68 Remains on atorvastatin 20mg HS #DM II On Tradjenta 5mg daily, Jardiance 25m daily at baseline. Last A1c in system from 2023 at 7.0 --> repeat A1c pending from this morning Pharmacy consulted while inpatient and appreciate assistance #COPD/Asthma Continue Trelegy/hospital equiv, nebs Has hx tobacco use, quit 2019. Prior Pulm note reviewed and stable emphysema w/ bullous changes w/o susp nodules and continues w/ yearly LDCT BiPAP HS ordered Supplemental O2 as needed #GERD Continue PPI once daily DVT Proph: SCDs, chemoproph deferred in setting of hematuria/ABLA Dispo: continued inpatient stay Thank you for allowing hospitalist service to participate in the care of Mr Boss. Hospitalist service will follow along. Please call with any questions/concerns. Supervising Physician Co-Signing Physician Notes During face to face encounter, I obtained a history and physical examination, discussed plan of care with patient and answered any questions. I discussed plan of care with NICHO Gomez. I reviewed above note and agree with it except for the following: Patient is consulted for acute hypoxia. Likely secondary to anesthetics and fluid. will slowly monitor. place on IV lasix History of Present Illness Reason for Consultation: medical management Requesting Physician: Dr Horan Attending Physician: Curtis Horan, II, DO History of Present Illness 69yo male with PMHx significant for HTN, HLD, DM II, WING (CPAP HS), COPD/Asthma, with prior history of TURP ws diagnosed with prostate cancer at outlying facility (3+4) presented for robotic prostatectomy with Dr Horan on 11/30. Patient evaluated in 457 post-op, attempting to move his bowels. Has some gas pain, is passing gas/good bowel sounds. Pain stable and not using much in way of medications, typically reports good results with ibuprofen and doesn't like opiates. Wants to get up and moving. Hayden currently clearing up, some sediment in tubing but no overt hematuria. No CP. No overt shortness of breath and wears CPAP at night typically but requiring 4L NC to maintain sats and CXR w/ edema and going to give dose of lasix and stop IVF as NOT typically on O2 at baseline. Reports chronic cough/bronchitis since his COVID in early . No hx DVT but has chronic R leg swelling at times/prior procedures and hx cellulitis. No overt tenderness, SCDs in place. Continued inpatient stay titrating O2 and monitoring and therapy evals but potential dc in AM pending response. Allergies Allergy/AdvReac Type Severity Reaction Status Date / Time chlorhexidine Allergy Mild Rash Verified 11/30/24 06:08 latex Allergy Mild rash Verified 11/30/24 06:08 Iodinated Contrast Media Allergy Unknown hives Verified 11/30/24 06:08 metformin AdvReac Mild Vomiting Verified 11/30/24 14:33 semaglutide [From Ozempic] AdvReac Mild Bloated Verified 11/30/24 06:08 sitagliptin [From Januvia] AdvReac Mild Vomiting Verified 11/30/24 14:33 Home Medications Medication Instructions Recorded Confirmed Type albuterol sulfate 90 mcg/actuation 1 inh inhalation QID PRN sob 10/15/23 11/30/24 History aerosol inhaler diltiazem HCl 300 mg capsule,24 300 mg PO QAM 10/15/23 11/30/24 History hr,extended release empagliflozin 25 mg tablet 25 mg PO QAM 10/15/23 11/30/24 History (Jardiance) ipratropium 0.5 mg-albuterol 3 mg 3 ml inhalation QID PRN sob 10/15/23 11/30/24 History (2.5 mg base)/3 mL nebulization soln lubiprostone 8 mcg capsule 8 mcg PO HS PRN Constipation 10/15/23 11/30/24 History nystatin 100,000 unit/gram topical 1 applic topical DAILY PRN ud 10/15/23 11/30/24 History cream omeprazole 20 mg tablet,delayed 20 mg PO QAM 10/15/23 11/30/24 History release linagliptin 5 mg tablet (Tradjenta) 5 mg PO QAM 12/29/23 11/30/24 History artificial tears(hypromellose) 0.3 1 drp ophthalmic (eye) TID PRN ud 09/21/24 11/30/24 History % eye drops clobetasol 0.05 % topical cream 1 applic topical DAILY PRN . 09/21/24 11/30/24 History meclizine 12.5 mg tablet 12.5 mg PO DAILY PRN Dizziness 09/21/24 11/30/24 History atorvastatin 20 mg tablet 20 mg PO PM 11/20/24 11/30/24 History fluticasone fur. 100 mcg-umeclid 1 inh inhalation QAM 11/20/24 11/30/24 History 62.5 mcg-vilant 25 mcg inhalat.powder (Trelegy Ellipta) docusate sodium 50 mg capsule 50 mg PO BID PRN constipation #30 12/02/24 Rx (Colace Clear) caps oxycodone 5 mg tablet 5 mg PO Q6H PRN pain #14 tabs 12/02/24 Rx Patient History Medical History History of cellulitis treated for "3 weeks ago" in right leg Prostate cancer first treated 2020 (surgery) Benign neoplasm of colon TIA (transient ischemic attack) >no problems GERD (gastroesophageal reflux disease) Pulmonary nodule HTN (hypertension) Obesity Chronic cough History of colon polyps Osteoarthritis DDD (degenerative disc disease), lumbar IBS (irritable bowel syndrome) DM type 2 (diabetes mellitus, type 2) Hearing deficit wears hearing aids HLD (hyperlipidemia) History of paroxysmal supraventricular tachycardia follows with Dr. Rowell Sleep apnea CPAP Asthma using more frequently d/t pollen COPD (chronic obstructive pulmonary disease) Surgical History S/P TURP (transurethral resection of prostate) 2020 History of lumbar laminectomy 01/2024>MN with Yulia History of carpal tunnel surgery Bilateral History of rib fracture Rt - pt reports hardware in place 2020 History of cataract surgery right/left History of surgery on lower extremity RLE x 13 procedures r/t trauma History of umbilical hernia repair History of right shoulder replacement History of left shoulder replacement History of esophagogastroduodenoscopy (EGD) History of colonoscopy History of prostate surgery TURP History of prostate biopsy History of cardiac catheterization most recent early - no stents. Family History Mother , in her 60s Diabetes Myocardial infarction Breast cancer Hypertension Father , at 78yo Myocardial infarction Stroke Hypertension Breast cancer Brother Heart disease Stroke Brother Prostate cancer Sister Diabetes Myocardial infarction Sister Medical history unknown Sister Medical history unknown Sister Cancer Pt uncertain of type Daughter Overdose Son No problems noted. 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;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 Feels Safe at Home: Yes Diet: regular caffeine: Yes (3 cups/day) during the past year weight has: remained stable Assistive Devices: Cane and Walker Review of Systems 2 Review of Systems: All systems reviewed & are unremarkable except as noted in HPI & below Physical Exam 2 Physical Exam: General: 69yo obese male laying in bed, on bedpan, NAD but reporting gas pain/attempting to move his bowels HEENT: head atraumatic, thick neck, mmm Resp: diminished in the bases, faint expiratory wheeze, no rales, not tachypneic, able to talk in complete sentences but +cough, on 4L NC (BiPAP at bedside) CV: regular rate, rhythm, +faint systolic murmur, trace pitting edema (chronic R leg edema at baseline), pulses present GI: +BS but +distension, lap sites appropriately tender to palpation (primary pain located RLQ site), no overt drainage/erythema and kolton intact : hayden w/ clearer yellow urine in tubing, some sediment in bag but overall yellow in color without significant hematuria MSK/Neuro: not confused, able to answer questions appropriately, moves all extremities Psych: AOx3, cooperative with exam Results & Data Results & Data Vital Signs (Past 12 Hours) Vital Signs Temp Pulse Pulse Resp BP Pulse Ox O2 Del Method 12/01/24 07:19 80 12/01/24 02:45 36.5 C 86 16 110/68 94 BiPAP 12/01/24 02:10 15 11/30/24 23:00 97 H 11/30/24 22:48 37.1 C 89 18 104/66 93 BiPAP 11/30/24 22:10 94 H 25 H 92 11/30/24 20:00 Nasal Cannula FiO2 12/01/24 07:19 12/01/24 02:45 12/01/24 02:10 35 11/30/24 23:00 11/30/24 22:48 11/30/24 22:10 35 11/30/24 20:00 Laboratory Results 12/01/24 06:11 12/01/24 06:11 Mag 1.8 A1c 9.4 Diagnostic Findings Chest X-Ray 11/30/24 12:13 XR chest 1V portable CLINICAL HISTORY: hypoxia COMPARISON STUDY: 01/18/2024 FINDINGS: Compared with the prior examination, the interstitial lung markings are more pronounced. Cardiomegaly and pulmonary vascular congestion is present. There are small patchy areas of focal air space opacity in the lung bases making it difficult to exclude an infectious process as well. IMPRESSION: Findings consistent with CHF. Small pneumonic infiltrates not excluded. ACT 112: Negative or not required by law. Electronically signed by: Nafisa Larry M.D. 11/30/2024 12:34 PM PG Care Time/CCT Total # of Minutes Spent Total Time Spent with Patient: Total time spent is greater than 50% in coordination of care (as documented) at patient's floor/unit and/or counseling patient: Coding Level of Care Code 94052 IN/OBS CONSULT LVL 3,45M Diagnoses Prostate cancer C61 Hypoxia R09.02 HTN (hypertension) I10 DM type 2 (diabetes mellitus, type 2) E11.9 COPD (chronic obstructive pulmonary disease) J44.9 Asthma J45.909 GERD (gastroesophageal reflux disease) K21.9 Sleep apnea G47.30 S/P TURP (transurethral resection of prostate) Z90.79 Hematuria R31.9
[2024-12-01 08:20] LABS: Estimated Average Glucose 223 mg/dl; Hemoglobin A1C 9.4 % (4.5-5.6)
[2024-12-01 08:33] LABS: Magnesium 1.8 mg/dl (1.7-2.4)
[2024-12-01] MEDS ORDERED: NON-FORMULARY MEDICATION (Fluticasone-Umeclidin-Vilanter [Trelegy Ellipta] 100-62.5-25 mcg INH SCH (09:00)
--- NOTE | 2024-12-01 09:30 | XRay Report ---
XR chest 1V portable CLINICAL HISTORY: f/u chf, hypoxia COMPARISON STUDY: 11/30/2024 FINDINGS: Stable mild cardiomegaly without pulmonary vascular congestion. Stable mild stranding opaci ty at the left lung base. No pneumothorax. IMPRESSION: Stable exam. ACT 112: Negative or not required by law. Electronically signed by: Carlos Pavon M.D. 12/01/2024 9:29 AM
[2024-12-01] MEDS: LANTUS PER UNIT CHARGE SC SCH (09:53)
[2024-12-01] MEDS: FUROSEMIDE 40 MG/4 ML VIAL IV ONE (09:55)
[2024-12-01] MEDS: dilTIAZem HCL 300 MG CAPCR PO SCH (09:57)
[2024-12-01] MEDS: POTASSIUM CHLORIDE CRTAB 20 MEQ TABCR PO STA (09:57)
[2024-12-01] MEDS: FLUTICASONE FUROATE 100MCG 14 PUFFS/INHALER INH SCH (09:58)
[2024-12-01] MEDS: PANTOprazole 40 MG TAB PO SCH (09:59)
[2024-12-01] MEDS: UMECLIDINIUM/VILANTEROL 62.5/25MCG 7 PUFFS/INHALER INH SCH (10:00)
--- NOTE | 2024-12-01 10:11 | Urology Progress Note ---
Date of Service December 01, 2024 Assessment & Plan (1) Prostate cancer: Plan: 69 yo/M POD #1 s/p Robotic Laparoscopic-Assisted Radical Retropubic Prostatectomy with Dr. Horan. - Doing well, progressing as expected - Afebrile with stable vitals, O2 94 % on 4L nasal cannula - Post op lab work reviewed and as expected - Reports some incisional discomfort, utilizing Tylenol - Tolerating clear liquid diet - will advance to regular diet, dc IV fluids - Encouraged OOB ambulation - Incisions appropriate - Haji catheter draining appropriately with clear yellow urine - Maintain Haji catheter upon discharge - Hospitalists following - appreciate assistance with medical management - Plan to wean oxygen as appropriate - Expected clinical course reviewed, all questions answered - Anticipate discharge to home later tomorrow Admission and Anticipated Discharge Date Admission Date: November 30, 2024 Subjective Patient seen and examined at bedside this morning. He is awake and resting in bed. Reports some incisional discomfort. Also notes some abdominal pressure/bloating. Tolerating clear liquid diet. Denies nausea, vomiting, feve r or chills. Review of Systems Constitutional: as per Subjective / HPI Genitourinary: + as per Subjective / HPI Physical Exam Constitutional: + obese; no acute distress Respiratory: no respiratory distress and no labored breathing supplemental oxygen Gastrointestinal (Abdomen): Inspection/Auscultation: abdomen normal to inspection Musculoskeletal: Head/Neck/Chest: normocephalic Skin: Incisions C/D/I with kolton Neurologic: moves all extremities and awake Psychiatric: Orientation: alert and oriented x 3 Genitourinary: Haji with clear yellow urine Results & Data Vital Signs (Past 12 Hours) Vital Signs Temp Pulse Pulse Resp BP Pulse Ox O2 Del Method 12/01/24 07:53 36.7 C 86 20 111/73 94 Nasal Cannula 12/01/24 07:19 80 12/01/24 02:45 36.5 C 86 16 110/68 94 BiPAP 12/01/24 02:10 15 11/30/24 23:00 97 H 11/30/24 22:48 37.1 C 89 18 104/66 93 BiPAP 11/30/24 22:10 94 H 25 H 92 O2 Flow Rate FiO2 12/01/24 07:53 4.0 12/01/24 07:19 12/01/24 02:45 12/01/24 02:10 35 11/30/24 23:00 11/30/24 22:48 11/30/24 22:10 35 PG Care Time/CCT Total # of Minutes Spent Total Time Spent with Patient: Total time spent is greater than 50% in coordination of care (as documented) at patient's floor/unit and/or counseling patient: Coding Level of Care Code None Diagnoses Prostate cancer C61
--- NOTE | 2024-12-01 11:16 | Pharmacy Report ---
Pharmacy Glycemic Short Note 2 - Date of Service December 01, 2024 - Glycemic Short BSG Results (Last 24 hours): 11/30/24 11/30/24 11/30/24 12:25 12:27 12:51 Glucose 374 H* POC Glucose 307 H* 349 H* 11/30/24 11/30/24 11/30/24 13:06 13:53 14:37 Glucose POC Glucose 332 H* 316 H* 363 H* 11/30/24 11/30/24 12/01/24 16:51 19:59 00:04 Glucose POC Glucose 300 H 311 H* 210 H 12/01/24 12/01/24 06:11 07:52 Glucose 185 H POC Glucose 184 H OUTPATIENT ANTIDIABETIC REGIMEN: * Jardiance 25mg po daily * Tradjenta 5mg po daily HbA1c 9.4% on 12-01-24 ASSESSMENT: 12/01 * Carlos received a total of 70 units of insulin yesterday (40 units were basal and 30 units were bolus) * Fasting BSG was 184mg/dL. Since no further steroids are ordered postop, it is expected that his insulin needs will be reduced. Lantus 10 units SQ daily was added this morning. * Will continue bolus insulin regimen without change. 11/30: * 69 year old male admitted today for prostatectomy and pelvic lymph node dissection. (POD #0) Pharmacy has been consulted for glycemic management postop * BSG pre op was 233mg/dL and post op was 307mg/dL. Patient received 8mg iv dexamethasone preop. He was given 10 units of IV regular insulin at ~1230 and 10 units of SQ regular insulin at ~1330. At 1437 his BSG was still 363mg/dL. Lantus 25 units SQ x 1 was ordered and a Lantus scale (0,10, or 15 units depending on BSG) was added at HS. A weight based bolus insulin regimen with a stress of 2 was started. PLAN FOR INPATIENT GLYCEMIC CONTROL: * Hold outpatient oral diabetes medications * Basal insulin * Lantus 10 units SQ daily * Bolus insulin * NovoLog per scale ACHS or Q6hrs while NPO * Goal Range: Low 120 mg/dL - High 150 mg/dL * Correction Factor: 25 mg/dL/unit * Nutritional / Prandial insulin per carb ratio of 1 unit per 9 grams CHO consumed
[2024-12-01] MEDS: guaiFENesin 600 MG TABCR PO SCH (21:00)
[2024-12-02 02:59] VITALS: RESP 18
[2024-12-02 05:53] LABS: Basophils # (auto) 0.04 K/uL (0.00-0.20); Basophils % (auto) 0.5 %; Eosinophils # (auto) 0.03 K/uL (0.00-0.50); Eosinophils % (auto) 0.4 %; Hemoglobin 11.8 g/dl (14.0-18.0); Immature Granulocytes # (auto) 0.05 K/uL (0.01-0.20); Immature Granulocytes % (auto) 0.6 %; Lymphocytes # (auto) 2.03 K/uL (1.20-3.40); Lymphocytes % (auto) 25.2 %; Mean Corpuscular Hemoglobin 28.9 pg (25.0-34.0); Mean Corpuscular Hgb Conc 32.8 g/dL (32.0-36.0); Mean Corpuscular Volume 88.2 fL (80.0-100.0); Mean Platelet Volume 12.1 fL (9.4-12.4); Monocytes # (auto) 0.84 K/uL (0.11-0.59); Monocytes % (auto) 10.4 %; Neutrophils # (auto) 5.06 K/uL (1.40-6.50); Neutrophils % (auto) 62.9 %; Platelet Count 130 K/uL (130-400); RDW Coefficient of Variation 14.5 % (11.5-14.5); RDW Standard Deviation 46.5 fL (36.4-46.3); Red Blood Count 4.08 M/uL (4.70-6.10); White Blood Count 8.05 K/ul (4.8-10.8)
[2024-12-02 06:08] LABS: Calcium 8.4 mg/dl (8.6-10.3); Creatinine Clr Calc Pharmacy 110.9 ml/min; Magnesium 1.8 mg/dl (1.7-2.4); Potassium 3.9 mmol/L (3.5-5.1)
[2024-12-02] MEDS: LANTUS PER UNIT CHARGE SC SCH (09:53)
--- NOTE | 2024-12-02 12:17 | Urology Progress Note ---
Date of Service December 02, 2024 Assessment & Plan (1) Prostate cancer: Plan: 69 yo/M POD #2 s/p Robotic Laparoscopic-Assisted Radical Retropubic Prostatectomy with Dr. Horan. - Doing well, progressing as expected - Afebrile with stable vitals, O2 95% on 2L nasal cannula. Patient has been intermittently removing it on his own. Appears to remain above 90 even after activity. - Post op lab work reviewed and as expected Patient improving. Continue to monitor vitals and labs. - Encouraged OOB ambulation - Incisions appropriate - Haji catheter draining appropriately with clear yellow urine - Maintain Haji catheter upon discharge - Hospitalists following - appreciate assistance with medical management Will need medications for discharge for home for medical issues. - Discharge plan -- today. Will put in discharge instructions for care after surgery as well as medications for pain control. Will await hospitalist orders for any medication changes as well as plans for outpatient follow-up especially related to chronic respiratory issues. - Plan to wean oxygen this morning. Will remove and monitor. Patient with baseline chronic respiratory issues. Will likely need to follow with PCP once discharged - Expected clinical course reviewed, all questions answered - Anticipate discharge to home later tomorrow Admission and Anticipated Discharge Date Admission Date: November 30, 2024 Subjective Postop from urologic surgery. Patient status post robot-assisted laparoscopic prostatectomy. Had issues with some desat/exacerbation of chronic respiratory issues post procedure. Patient has not complained of any chest pain shortness of breath or severe issues. Does appear to have oxygen saturations in the mid to low 90s. Has been undergoing supplemental of oxygen with currently 2 L nasal cannula. This has been intermittently being taken off by the patient as well as removed when patient is trying to ambulate. Patient has been tolerating well, but is having some pain and discomfort. Incisions have been mild sore. Having some abdominal distension/gas pains. Has tolerated catheter. Has not had severe pain or uncontrollable pain. Patient has been ambulating. Has not had bowel movement or major change. No new nausea or vomiting. Had tolerated anesthesia without major problems Tolerated diet postoperatively. Review of Systems Review of Systems: All systems reviewed & are unremarkable except as noted in HPI & below Physical Exam Physical Exam: General: Alert in no acute distress. HEENT: Normocephalic Atraumatic. Inspection normal. Psychologic: Normal affect. Respiratory: Nonlabored. No use of accessory muscles. Cardiovascular: No tachycardia Skin: [place] and Dry. No rashes or visible lesions. Abdomen: Non-distended. Wound: Clean dry and intact Results & Data Vital Signs (Past 12 Hours) Vital Signs Temp Pulse Pulse Resp BP Pulse Ox O2 Del Method 12/02/24 08:21 87 12/02/24 08:17 95 Nasal Cannula 12/02/24 07:50 36.7 C 77 18 117/66 95 Nasal Cannula 12/02/24 02:58 36.9 C 75 18 129/75 96 CPAP 12/02/24 02:19 75 22 94 O2 Flow Rate FiO2 12/02/24 08:21 12/02/24 08:17 2 12/02/24 07:50 2.0 12/02/24 02:58 12/02/24 02:19 35 PG Care Time/CCT Total # of Minutes Spent Total Time Spent with Patient: Total time spent is greater than 50% in coordination of care (as documented) at patient's floor/unit and/or counseling patient: Coding Level of Care Code None Diagnoses Prostate cancer C61
[2024-12-02 12:23] VITALS: BP 131/67; TEMP 97.9; O2SAT 92
[2024-12-02 14:32] VITALS: PULSE 85
--- NOTE | 2024-12-05 10:55 | Discharge Summary ---
Date of Service December 05, 2024 Admission HPI Per Admitting Provider See H&P Admission Exam Per Admitting Provider See H&P Principal Diagnosis Prostate cancer Discharge Exam General: Alert in no acute distress. HEENT: Normocephalic Atraumatic. Inspection normal. Psychologic: Normal affect. Skin: [place] and Dry. No rashes or visible lesions. Abdomen: Soft Non-distended. No rebound or guarding. Discharge Data Allergies Allergy/AdvReac Type Severity Reaction Status Date / Time chlorhexidine Allergy Mild Rash Verified 11/30/24 06:08 latex Allergy Mild rash Verified 11/30/24 06:08 Iodinated Contrast Media Allergy Unknown hives Verified 11/30/24 06:08 metformin AdvReac Mild Vomiting Verified 11/30/24 14:33 semaglutide [From Ozempic] AdvReac Mild Bloated Verified 11/30/24 06:08 sitagliptin [From Januvia] AdvReac Mild Vomiting Verified 11/30/24 14:33 Consultations 11/30/24 14:29 Consult Hospitalist Routine Procedures Performed Operation Date: 11/30/24 07:30 Actual Procedures p Robotic Assisted Laparoscopic Radical Retropubic Prostatectomy, Pelvic Lymph Node Dissection, Extensive Lysis of Adhesions(Not Applicable) - Curtis Horan, DO Diabetes Follow up Diabetes Follow-up Needed for HgbA1c >9% Hospital Course (1) Prostate cancer: 69 yo/M POD #2 s/p Robotic Laparoscopic-Assisted Radical Retropubic Prostatectomy with Dr. Horan. - Doing well, progressing as expected - Afebrile with stable vitals, O2 95% on 2L nasal cannula. Patient has been intermittently removing it on his own. Appears to remain above 90 even after activity. - Post op lab work reviewed and as expected Patient improving. Continue to monitor vitals and labs. - Encouraged OOB ambulation - Incisions appropriate - Haji catheter draining appropriately with clear yellow urine - Maintain Haji catheter upon discharge - Hospitalists following - appreciate assistance with medical management Will need medications for discharge for home for medical issues. - Discharge plan -- today. Will put in discharge instructions for care after surgery as well as medications for pain control. Will await hospitalist orders for any medication changes as well as plans for outpatient follow-up especially related to chronic respiratory issues. - Plan to wean oxygen this morning. Will remove and monitor. Patient with baseline chronic respiratory issues. Will likely need to follow with PCP once discharged - Expected clinical course reviewed, all questions answered - Anticipate discharge to home later tomorrow Total Time Total Time Spent Total Time Spent (In Minutes): 10 minutes Total Time Includes: Examination of the Patient, Discharge Planning, Medication Reconciliation and Communication With Other Providers Discharge Plan Discharge Items Patient Disposition: Home - Self-Care Reason For Visit: Prostate Cancer Discharge Diagnosis: Prostate cancer Activity: Per Instructions section Lifting: No more than 25 pounds and No more than 50 pounds Bathing: Keep incision dry Bathing Comment: Okay to shower in next 1 to 2 days. Okay to wash with warm soapy water ove Sexual Activity: Wait until after follow-up appointment Exercise/Sports: Gradually increase as tolerated Exercise Comment: See below Non-emergency contact: Urologist Call non-emergency contact if: you have any medication questions, your symptoms worsen, your pain is not controlled, your pain is worsening, your pain is unu sual for you, your pain is concerning for you, you have a fever and your temperature is above 101.5 Follow-up/Referrals: Emery Juarez PA-C [Primary Care Provider] - Diet: Regular Addtl Attending Provider Instructions: Please take all medications as prescribed and keep all follow-ups as scheduled. Please call our office at [phone] with any questions, concerns or need to reschedule appointments for any reason. We are happy to assist you. Activity: We recommend having someone with you for the first few days after surgery to help care for you. For the first 2 weeks after surgery, we would like you to get up and walk around your house. However, we recommend limit physical activity that would increase your heart rate. This will allow your body to rest and heal. Take naps if you feel tired. Don't lift anything heavier than 10-25 pounds, mow the law or ride a bicycle until your follow-up appointment. Please avoid long car rides. Home Care: Unless directed otherwise, drink 6 to 8 glasses of water a day (enough to keep your urine light colored). This will also help keep a healthy flow of urine. We recommend using a stool softener for the first two weeks to avoid constipation. Haji Catheter or Suprapubic Catheter care: Keep the catheter well secured with either a leg back or leg strap with large bag. Empty your bag when it's about half full. You may notice some blood in the bag. This is normal after surgery and while the catheter is in place. Use mild soap (such as Dove or Dial) and water to wash the catheter and the head of your penis daily, or more frequently if needed. Return to your normal diet, we encourage good protein intake to promote healing. You may shower as normal. Please avoid tub baths or soaking until catheter removed and incisions well healed. Wearing sweat pants while you have the catheter is recommended, they will be more comfortable. Follow-up Your follow up appointments for having your catheter removed, and follow up with your physician should already be scheduled. If you have any questions regarding this, please contact our office. Your final pathology report will be discussed at your physician follow-up appointment. Call [facility] at [phone] right away if you have any of the following: Chest pain or trouble breathing (call [phone] or go to the hospital) Fever of 101F or higher, uncontrolled vomiting Heavy bleeding, clots, or bright red blood from the catheter Catheter that falls out or stops draining Foul-smelling discharge from your catheter Redness, swelling, warmth, or increased pain at your incision site Drainage, pus, or bleeding from your incision Pending Studies at Discharge: No Stand-Alone Forms: My [facility] [employer], Smoking Cessation Medications and DC Order Prescriptions: New oxycodone 5 mg tablet 5 mg PO Q6H PRN (Reason: pain) Qty: 14 0RF Colace Clear 50 mg capsule 50 mg PO BID PRN (Reason: constipation) Qty: 30 2RF Continued artificial tears(hypromellose) 0.3 % drops 1 drp ophthalmic (eye) TID PRN (Reason: ud) clobetasol 0.05 % cream 1 applic topical DAILY PRN (Reason: .) ipratropium-albuterol 0.5 mg-3 mg(2.5 mg base)/3 mL Solution For Nebulization 3 ml INHALATION QID PRN (Reason: sob) diltiazem HCl 300 mg Capsule,Extended Release 24 Hr 300 mg PO QAM nystatin 100,000 unit/gram Cream 1 applic TOPICAL DAILY PRN (Reason: ud) albuterol sulfate 90 mcg/actuation Hfa Aerosol Inhaler 1 inh INHALATION QID PRN (Reason: sob) omeprazole 20 mg Tablet,Delayed Release (Dr/Ec) 20 mg PO QAM lubiprostone 8 mcg Capsule 8 mcg PO HS PRN (Reason: Constipation) Jardiance 25 mg Tablet 25 mg PO QAM Tradjenta 5 mg Tablet 5 mg PO QAM meclizine 12.5 mg tablet 12.5 mg PO DAILY PRN (Reason: Dizziness) atorvastatin 20 mg Tablet 20 mg PO PM Trelegy Ellipta 100-62.5-25 mcg Blister With Device 1 inh INHALATION QAM Discharge Orders: Discharge Order (Routine); Ordered 12/02/24 Ordered By: Curtis Horan Admission Data Admit Date/Time: 11/30/24 12:13 Attending Provider: Curtis Horan Admit Provider: Curtis Horan Primary Care Provider: Emery Juarez Other Providers: Jessica Gamez Other Interventions: Discharge Summary Assessment (RN) Last Done: 12/02/24 12:30 Coding Level of Care Code 27359 IN/OBS DISCH 30 MIN/LESS Diagnoses Prostate cancer C61
== END 2024-12-02 15:57 | disposition home or self-care (01) | DRG 707 ==
LOC: ASU 05:48 → 4W 12:13 → INTOOBSV 12:13